=== PATIENT | male | born 1965 | race Caucasian/White ===

== ENCOUNTER 2023-06-22 13:51 | Outpatient (AMB) | payer BC, SELFPAY ==
--- NOTE | 2023-06-22 14:04 | MHC.OFFVIS ---
Intake Intake Visit Reasons: neck pain Mechanic Chief Required: No Assessment & Plan Assessment & Plan (1) Cervical myelopathy: Code(s): G95.9 - Disease of spinal cord, unspecified Plan Dear Dino, Thank you for referring MR Reed to our office today. 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 The pain could be quite severe at times, and he was experiencing episodes of weakness. He underwent some physical therapy and this would give him some mild temporary relief but otherwise the symptoms would come and go from time to time based on what he was doing. He tells me that the initial pain that he had is mostly gone but he is still getting significant discomfort in flare-ups from time to time that will last a few days and will make him basically bed-bound for few days. When he has he has flare-ups the arm will feel diffusely weak and numb. He is concerned because his MRI had signs of severe stenosis at C4-5. He was sent today to see us for an evaluation of the stenosis. He does not report any fine motor movement loss. No gait imbalance. He does take most days. PMH: He had a stroke last year which apparently the workup for that did not reveal any significant issue with his heart or his carotid arteries but he has been maintained on a baby aspirin ever since. His initial symptom was aphasia and that resolved. He has high cholesterol but other than that he is healthy. Social hx: He does smoke 3/4 of a pack a day Medications: Baby aspirin, rosuvastatin, Tylenol Allergies: None Physical exam: Strength is grossly normal in the upper extremities, normal gait, he is diffusely hyperreflexic with clonus in his left ankle. Negative Kori sign. Imaging review: Cervical MRI done at [facility] shows evidence of disc degeneration at multiple regions, but most significantly at C4-5 there is a large posterior disc bulge causing moderate to severe spinal cord compression. I do not see any overt cord signal change inside the spinal cord itself. Impression: 58-year-old gentleman presents for evaluation of intermittent left upper arm pain with diffuse arm weakness on and off since November of this year. When he does have a flare-up the pain can become so incapacitating he will basically be homebound her bedbound for a few days. It has been interrupting his sleep and his quality of life. On exam his strength is okay but he is demonstrating signs of hyperreflexia consistent with early myelopathy. I am going to speak with Dr. Silva, but I think this gentleman would be a good candidate for anterior cervical diskectomy and fusion at C4-5. We discussed all pertinent risks and benefits as well as the recovery from surgery. The patient is interested in proceeding. I will call him back once the have a chance to speak with Dr. Silva. Thank you for allowing us to care for your patient. The total time spent with this visit with this patient was 45 minutes reviewing history, physical exam, cervical spine imaging review, and implementation of treatment plan or further diagnostic testing Momo Silva MD,PhD [facility] Coding Level of Care Code New Pt Level 4 (14047) Diagnoses Cervical myelopathy G95.9
== END 2023-06-22 15:35 | disposition home or self-care (01) ==
PROVIDERS: PCP Internal Medicine; Referring Provider Physician Assistant; Visit Provider Physician Assistant
DX: G95.9 Disease of spinal cord, unspecified (principal)
CPT/HCPCS: 99204

== ENCOUNTER → 2023-06-22 13:51 | Outpatient (BNVA) | payer BC, SELFPAY | PROVIDERS: PCP Internal Medicine; Visit Provider Physician Assistant ==

== ENCOUNTER 2023-07-10 15:07 | Outpatient (AMB) | payer BC, SELFPAY ==
--- NOTE | 2023-07-10 15:32 | HO.SPINEOV ---
Intake Intake Visit Reasons: discuss sx Intake Note: Mr. Reed is here to discuss surgical options. Health Assistant Required: No Assessment & Plan Assessment & Plan (1) Cervical myelopathy: Code(s): G95.9 - Disease of spinal cord, unspecified Plan Dear colleague, On 07/10/2023, I saw for a preoperative consult Sundeep Uriarte. He was previously evaluated by Momo Simon for cervical myelopathy with severe spinal cord compression at C4-C5. He states that he has intermittent flare-ups of pain radiating to his proximal part of his left arm and diffuse weakness. The patient had a left temporal stroke in April of 2022. Cardiology evaluation review no cause. He denies chest pain. Today's exam, shows hyperreflexia with the left side is higher than the right side and a left Babinski. I reviewed the MRI of the cervical spine in detail that shows severe spinal cord compression at C4-5 and a left C7 foraminal stenosis. Most likely all symptoms can be explained from the C4-5 region, including the flare ups with pain in his left upper arm. Therefore I proposed to do an anterior diskectomy fusion C4-C5 to decompress the spinal cord and exiting nerve root to address his cervical myelopathy and cervical radiculopathy. An additional posterior left C7 foraminotomy will be indicated if the flare ups of pain in his left arm do not respond to the C4-5 ACDF. I discussed the procedure and possible complications in detail with the patient and his . He is scheduled for 09/27/2023. We will obtain records from [facility] and [facility]ology. He needs to stop his aspirin 5 days prior to surgery. I spent 45 minutes in this consult for preparation, review of imaging and discussing plan of care. Thank you for the referral. Sumeet Silva MD, PhD Spine Fellowship Trained Neurosurgeon Director, [facility] [place] Coding Level of Care Code Est Pt Level 5 (39435) Diagnoses Cervical myelopathy G95.9
== END 2023-07-10 16:15 | disposition home or self-care (01) ==
PROVIDERS: PCP Internal Medicine; Visit Provider Neurological Surgery
DX: G95.9 Disease of spinal cord, unspecified (principal)
CPT/HCPCS: 99215

== ENCOUNTER → 2023-07-10 15:07 | Outpatient (BNVA) | payer BC, SELFPAY | PROVIDERS: PCP Internal Medicine; Visit Provider Neurological Surgery ==

== ENCOUNTER → 2023-09-13 12:51 | Outpatient (BNV) | payer BC, SELFPAY | PROVIDERS: PCP Internal Medicine; Visit Provider Internal Medicine Cardiovascular Disease | DX: R00.1 Bradycardia, unspecified (principal) | CPT/HCPCS: 93010 ==

== ENCOUNTER 2023-09-27 08:14 | Day surgery (SDC) | payer BC, SELFPAY ==
[2023-09-13 12:11] VITALS: BP 125/69; PULSE 65; RESP 18; O2SAT 96; BMI 26.0
--- NOTE | 2023-09-13 12:29 | HO.ANESPROP2 ---
Documented by User: Belle Oh NP 09/25/23 12:08 HPI - Anesthesia Eval Consult details Narrative: 58yo M for C4-5 Ant Cerv Discectomy w/ fusion, 09/27/23 No recent illness No CP/SOB with >4 mets CVA 2021. Resolved after antithrombics. salvage determiner aspirin and statin. Eval by cardiology at this time d/t eustachian valve - congenital and benign per cardiac office visit note. COPD/Smoker. No inhalers. GERD. Diet controlled Reports albuterol caused increase heart rate and SOB. ? side effect PMFSH Active Problems Active Problems: All Active Problems (Updated 09/13/23 @ 12:08 by Shayla Sanchez RN) Cervical myelopathy (Acute) Past Medical History Medical History Arthritis Habitual snoring Shoulder pain, right Elevated cholesterol Tobacco abuse Tubular adenoma GERD (gastroesophageal reflux disease) COPD (chronic obstructive pulmonary disease) CVA (cerebral vascular accident) Surgical History Surgical History (Updated 09/12/23 @ 10:12 by Shayla Sanchez RN) H/O colonoscopy Social History Social History Are you a primary home health care case manager to a significant other at home: No Do you presently have visiting nurse or other home services: No Patient Tobacco Use Status: Current everyday Tobacco user Tobacco use type: Cigarette Cigarettes Per Day: 10 Use of substances other than those prescribed or required for medical reasons: No Have you been hit, kicked, punched, or otherwise hurt by someone within the past year? If so, by whom?: No Advance Directives: No Advance Directives Information Provided: Yes Advance Directives on File: No Recently lost weight without trying: No Eating poorly because of decreased appetite: No Nutrition Risks: No Nutritional Risk Poor oral hygiene: Yes (partial dentures upper and lower) Meds Allergies Allergy/AdvReac Type Severity Reaction Status Date / Time albuterol [From ProAir HFA] Allergy Unknown Verified 09/27/23 08:55 amoxicillin Allergy Unknown Verified 09/27/23 08:55 Home Medications Medication Instructions Recorded Confirmed Last Taken Type aspirin 81 mg tablet,delayed 81 mg PO DAILY 09/12/23 09/12/23 09/20/23 History release diclofenac sodium 75 mg 75 mg PO BID PRN pain 09/12/23 09/12/23 Unknown History tablet,delayed release fluticasone propionate 50 2 spray intranasal DAILY 09/12/23 09/12/23 Unknown History mcg/actuation nasal spray,suspension multivitamin 1 tab PO DAILY 09/12/23 09/12/23 Unknown History rosuvastatin 10 mg tablet 10 mg PO BEDTIME 09/12/23 09/12/23 Unknown History Exam Height,Weight and Vital Signs: Height 5 ft 7 in Weight 75.296 kg Last Vital Signs Pulse 65 09/13/23 12:11 Resp 18 09/13/23 12:11 BP 125/69 09/13/23 12:11 Pulse Ox 96 09/13/23 12:11 O2 Del Method Room Air 09/13/23 12:11 Pertinent Lab Results Pertinent Lab Results: Lab Results 09/13/23 Range/Units 12:57 WBC 8.1 (4.8-10.8) X10*3/uL RBC 4.91 (4.60-5.80) X10*6/uL Hgb 15.1 (14.0-18.0) g/dl Hct 44.8 (42.0-52.0) % MCV 91.2 (80.0-98.0) fL MCH 30.8 (27.0-33.0) pg MCHC 33.7 (31.0-36.0) g/dl RDW 13.2 (11.0-16.0) % Plt Count 325 (160-400) X10*3/uL MPV 9.1 L (9.4-12.4) fL Absolute Nucleated RBC 0.000 (0.0-0.012) X10*3/uL Nucleated RBC % (auto) 0.0 (0.0-0.2) /100WBC Sodium 139 (135-145) mmol/L Potassium 4.9 (3.3-5.1) mmol/L Chloride 104 (96-108) mmol/L Carbon Dioxide 26 (22-29) mmol/L Anion Gap 14 (12-20) BUN 12 (9-16) mg/dL Creatinine 0.77 (0.5-1.4) mg/dL Estim Creat Clear Calc 96.5 Estimated GFR > 60 Random Glucose 84 (60-115) mg/dL Calcium 10.2 (8.4-10.2) mg/dL Narrative Narrative: EKG 09/2023 Vent. Rate : 057 BPM Atrial Rate : 057 BPM P-R Int : 208 ms QRS Dur : 104 ms QT Int : 402 ms P-R-T Axes : 064 053 051 degrees QTc Int : 391 ms Sinus bradycardia Otherwise normal ECG No previous ECGs available ECHO 2021 1. LV nml in size, wall thickness and systolic function. EF 55-65%. No RWMA. Nml diastolic function 2. LA nml in size 3. Agitated saline study was performed and was normal at rest and with Valsalva. No evidence of Right to Left shunting 4. RV is nml in size and function 5. Basal right atrium near the inter-atrial septum, there is a chamber/cyst like structure that measures [id number] that is anechoic and black Airway Mallampati Class: III TM Dist: >3cm Neck ROM: Limited Partial: Upper and Lower Loose/Missing/Broken Teeth: Yes (Front lower chipped) Heart: RRR Lungs: CTAB Assessment and Plan Assessment Anesthesia Assessment: Anesthesia Plan Discussed, Smoking Cess. Discussed and PAT Visit Documented by User: Robyn Feliz MD 09/27/23 10:12 [facility] Past Medical History Medical History Arthritis Habitual snoring Shoulder pain, right Elevated cholesterol Tobacco abuse Tubular adenoma GERD (gastroesophageal reflux disease) COPD (chronic obstructive pulmonary disease) CVA (cerebral vascular accident) Family History Family history of problems with anesthesia: No Surgical History Surgical History (Updated 09/12/23 @ 10:12 by Shayla Sanchez RN) H/O colonoscopy History of Problems with Anesthesia: No Social History Social History Are you a primary home health care case manager to a significant other at home: No Do you presently have visiting nurse or other home services: No Patient Tobacco Use Status: Current everyday Tobacco user Tobacco use type: Cigarette Cigarettes Per Day: 10 Use of substances other than those prescribed or required for medical reasons: No Have you been hit, kicked, punched, or otherwise hurt by someone within the past year? If so, by whom?: No Advance Directives: No Advance Directives Information Provided: Yes Advance Directives on File: No Recently lost weight without trying: No Eating poorly because of decreased appetite: No Nutrition Risks: No Nutritional Risk Poor oral hygiene: Yes (partial dentures upper and lower) Meds Allergies Allergy/AdvReac Type Severity Reaction Status Date / Time albuterol [From ProAir HFA] Allergy Unknown Verified 09/27/23 08:55 amoxicillin Allergy Unknown Verified 09/27/23 08:55 Home Medications Medication Instructions Recorded Confirmed Last Taken Type aspirin 81 mg tablet,delayed 81 mg PO DAILY 09/12/23 09/12/23 09/20/23 History release diclofenac sodium 75 mg 75 mg PO BID PRN pain 09/12/23 09/12/23 Unknown History tablet,delayed release fluticasone propionate 50 2 spray intranasal DAILY 09/12/23 09/12/23 Unknown History mcg/actuation nasal spray,suspension multivitamin 1 tab PO DAILY 09/12/23 09/12/23 Unknown History rosuvastatin 10 mg tablet 10 mg PO BEDTIME 09/12/23 09/12/23 Unknown History Assessment and Plan Assessment Anesthesia Assessment: Chart Reviewed Final Anesthetic Review Family History of Problems with Anesthesia: No History of Problems with Anesthesia: No NPO: Yes ASA Class: III Final Preanesthetic Review: No Changes in Pt Med Stat, Meds/Allgs Chart Reviewed, Consent Obtained/Reviewed and Anes Risks/Benef Reviewed Patient Risk: Intermediate Procedure Risk: Intermediate Anesthetic Plan Anesthetic Plan: GA Disposition: Standard PACU
[2023-09-13 14:49] LABS: Anion Gap 14 (12-20); Blood Urea Nitrogen 12 mg/dL (9-16); Calcium 10.2 mg/dL (8.4-10.2); Carbon Dioxide 26 mmol/L (22-29); Chloride 104 mmol/L (96-108); Creatinine Clr Calc Pharmacy 96.5; Estimated Glomerular Filt Rate > 60; Glucose Random 84 mg/dL (60-115); Potassium 4.9 mmol/L (3.3-5.1); Sodium 139 mmol/L (135-145)
[2023-09-27] VITALS (11 sets, daily range): BP systolic 122–158; BP diastolic 57–96; PULSE 58–77; RESP 11–21; TEMP 36.1–36.7; O2SAT 96–99; BMI 26.1
--- NOTE | ~2023-09-27 | FL_ITS ---
EXAMINATION: Intraoperative fluoroscopy CLINICAL INFORMATION: C4/5 anterior cervical discectomy with fusion COMPARISON: None. TECHNIQUE: Intraoperative fluoroscopy was provided for use by Dr. Silva. A total of 2 images were saved to PACS. A radiologist was not present during imaging. Today's dictation is only for administrative purposes to document intraoperative fluoroscopic usage. TOTAL FLUOROSCOPIC TIME: 0.0 minutes DAP: 0.13 Gy-cm FL/FL guidance in OR FINDINGS~\^^ Intraoperative fluoroscopy provided for use by Dr. Silva. Please see operative note for detailed findings.
--- NOTE | 2023-09-27 07:15 | MHC.SHP ---
Pre-Procedural Eval Section A Date of Service: 09/27/23 The patient is an INPATIENT: No Changes since office visit: No Cold of Flu in the past 2 weeks, No New Medical Problems, No Changes in Medication and No Patient answered all questions The History & Physical has been completed within 30 days and I have reviewed it.: No Section B Chief Complaint: Disease of spinal cord, unspecified Allergies: Allergies Allergy/AdvReac Type Severity Reaction Status Date / Time albuterol [From ProAir HFA] Allergy Unknown Verified 09/12/23 10:08 amoxicillin Allergy Unknown Verified 09/12/23 10:08 Review of Systems Sugical H&P ROS: Negative: Constitution, Cardiovascular, Respiratory, Neurological, Psychiatric, Hem-Onc, Allergic/Immunologic, Gastrointestinal, Genitourinary, Musculoskeletal, Integumentary, Endocrine and Eyes/Ears/Nose/Throat Exam Surgical H&P Exam: Not Evaluated: HEENT, Not Evaluated: Heart, Not Evaluated: Lungs, Not Evaluated: Extremities, Not Evaluated: Abdomen, Not Evaluated: Skin and Not Evaluated: Neurological Plan Diagnosis/Plan: Unchanged C4-5 anterior cervical diskectomy a nd fusion Time Spent With Patient Time: Total time managing care of this patient today __5__ minutes.
[2023-09-27] MEDS: Lactated Ringers 1,000 ML 100 ML IVCONT (09:01)
[2023-09-27] MEDS: Gabapentin 300 MG CAPSULE PO (10:21)
[2023-09-27] MEDS: vancomycin HCL 1,000 MG in 0.9 % Sodium Chloride 250 ML 270 MG IV (10:22)
[2023-09-27] MEDS: methocarbamoL 750 MG TABLET PO (10:22)
--- NOTE | 2023-09-27 10:37 | PC.NURSE ---
dr. lee had ordered preop respiratory treatment and then decision made not to give preop.
--- NOTE | 2023-09-27 11:59 | W.PM.OPN ---
Operative Note Operative Note Date of Service: 09/27/23 Narrative: Preoperative Diagnosis: Cervical myelopathy Procedure: C4-5 Anterior discectomy, arthrodesis and implantation cage ; C4-5 anterior instrumentation ; local autograft; microscope Informed Consent was obtained for this operation. I have explained the nature, purpose and benefits of the operation. I have discussed the risks and benefit of the operation including possible complications or adverse events with patient/family. Alternative(s) were discussed with the patient with their relative benefits and risks as well as the consequences of not accepting the operation were included in obtaining consent. Surgeon: NITZA SWIFT MD, PHD Procedure Assisted By: shania Oquendo Description of Procedure: This 58-year-old male suffering from symptoms of cervical myelopathy. MRI cervical spine shows multilevel degenerative changes a more importantly severe stenosis at C4-C5. He was offered a decompression of this level. The procedure complications were explained. The patient was consented. The patient was brought to the operating room and endotracheally intubated. The patient was put in supine position with slight extension of the neck. Prep and drape was done followed by timeout. A mid cervical incision was made followed by opening of the platysma. The prevertebral fascia was reached following the natural planes while the physician home based assistant provided manual retraction. The prevertebral fascia was opened to expose the disc space. A spinal needle was placed in the disk space to confirm the correct level with xray. The longus colli muscles were released bilaterally and a self retaining retractor was inserted. Two [place] pins were placed in the C4 and C5 vertebral bodies and distraction was give over the interspace. The discectomy was completed toward the posterior annulus of the disc. The microscope was brought in. The remainder of the discectomy was completed. The posterior ligament was opened and resected to expose the underlying dura. Osteophytes were resected from the body of C4 and C5 and saved for autograft. A curved curette could be easily passed under the body of C4 and C5, a sign of adequate decompression of the spinal cord. Bilateral foraminotomies were done. The endplates were prepared after which a 6 mm cage filled with autograft was inserted into the disc space. A separate attached plate was locked down with 2 x 14 mm screws as anterior instrumentation. Final x-rays in AP and lateral projection showed a satisfactory position of the implant. The physician home based assistant took over. The [place] pin was removed. Hemostasis was done. He closed the incision in 2 layers with a 3-0 Vicryl. Steri-Strips used to approximate incision. An OpSite with Tegaderm was used to cover the incision. All sponge and needle counts were correct. Patient was extubated and transported in stable is to recovery room. Anesthesia: General Estimated Blood Loss (ml): 10 mL Duration of Surgery: 60 minutes Postoperative Plan: Discharge home Complications: None
--- NOTE | 2023-09-27 12:05 | PM.DS ---
DS: Providers Provider Date of Service: 09/27/23 Date of discharge: 09/27/23 Primary care physician: Lilian Chavez MD Admitting clinician: Sumeet Silva DS: Diagnosis Discharge Diagnosis (1) Cervical myelopathy: Status: Acute DS: Summary Time Attestation Discharge coordination time: Less than 30 minutes Quality: Safe Use of Opioids Does Pt have an Active Cancer Diagnosis on the Problem List?: No Quality: Stroke Does the patient have a stroke diagnosis?: No Physical Exam Vital Signs: Vital Signs: Last Vital Signs Temp 98.0 F 09/27/23 08:56 Pulse 66 09/27/23 08:56 Resp 18 09/27/23 08:56 BP 122/57 L 09/27/23 08:56 Pulse Ox 97 09/27/23 08:56 O2 Del Method Room Air 09/27/23 08:56 BMI result Body Mass Index 26.1 Discharge Plan Discharge Patient Disposition: Home, Self-Care Referrals: Lilian Chavez MD [Primary Care Provider] - 1 Week Discharge Medications: New docusate sodium [Colace] 100 mg capsule 100 mg PO BID Qty: 20 0RF oxycodone 5 mg tablet 5 mg PO Q4H PRN (Reason: pain) Qty: 30 0RF Rx Instructions: Partial Fill upon patient request. Continued multivitamin Tablet 1 tab PO DAILY aspirin 81 mg tablet,delayed release (DR/EC) 81 mg PO DAILY diclofenac sodium 75 mg tablet,delayed release (DR/EC) 75 mg PO BID PRN (Reason: pain) fluticasone propionate 50 mcg/actuation spray,suspension 2 spray intranasal DAILY rosuvastatin 10 mg tablet 10 mg PO BEDTIME Discharge Orders: Discharge Order (Routine); Ordered 09/27/23 Ordered By: Momo Simon Diet: Advance to usual diet Activity on Discharge: As tolerated Activity Restrictions/Additional Instructions: After your spinal surgery we ask you to observe the following restrictions/guidelines: Activity: It is normal to feel some discomfort as you increase your activity, but that will improve with time. We ask you avoid heavy lifting or acitivities that cause pain. As a general rule, 8lbs is a safe limit for lifting right after surgery. Walk as much as you feel comfortable but not to exhaustion. You will feel extra tired the first few days after surgery. Stay well hydrated. It is OK to walk up and down stairs You may return to driving when you are off narcotics (such as vicodin, oxycodone, dilaudid, etc), and you are back to normal functional capacity. If you have any concerns please check with office before driving. Return to work is specific to each patient and each surgery, so please speak with your doctor/PA at first follow up. Please bring paperwork such as FMLA at that time if you need it filled out. Medications: For optimum pain control, it is best to start with a combination of 500 mg of Tylenol every 4 hours with 600 mg of Motrin every 8 hours, and use narcotics as needed in between for breakthrough pain. We will give you a short supply of narcotics after surgery (usually one weeks worth). If you need more please call the office but do not use more than prescribed. You will need to give our office 48 hours notice if you need narcotics refilled and we do not fill narcotics on weekends or evenings. If you are on a narcotic, it is a good idea to take a stool softener such as colace or senna to avoid constipation If you take blood thinner such as aspirin, Plavix, Coumadin, Effient, Eliquis etc for conditions such as Afib, DVT, Pulmonary embolus, coronary disease, stents etc please speak with your surgeon about specific details as to when you can resume these medications. You can resume NSAIDs on post op day 1 (eg: Motrin, Naproxen, etc). Follow up: Please call the office, , after surgery to arrange a 3 week follow up for wound check. Wound Care: You may remove your dressing on the first day after surgery. ?You may ?leave open to air. Please do not remove the steri strips underneath. they will fall off on their own in one week. IT IS NORMAL FOR THE WOUND TO OOZE OR BE BLOODY FOR A FEW DAYS AFTER SURGERY. ?IF THIS HAPPENS JUST PLACE NEW DRESSING OVER IT TO AVOID STAINING CLOTHES. You may shower on post op day # 1 We ask that you do not let the water soak the wound. If it does get wet, just towel dry lightly. Please do not scrub your incision or place any type of chemical/ointment on the wound. No tub baths, pools or jacuzzis for one month. If you have any leaking or redness from your wound, or fevers, please call office
[2023-09-27] MEDS: oxyCODONE HCl Immed Release 5 MG TABLET PO (12:24)
[2023-09-27] MEDS: fentaNYL citrate/PF 100 MCG/2 ML VIAL 25 MCG IVPUSH ×2 (12:24→12:29)
== END 2023-09-27 14:16 | disposition home or self-care (01) ==
PROVIDERS: Nurse Practitioner; PCP Internal Medicine; Visit Provider Neurological Surgery
PROC: (CPT 22551; principal; 2023-09-27 11:10)
DX: G95.9 Disease of spinal cord, unspecified (principal); M48.02 Spinal stenosis, cervical region
CPT/HCPCS: 22551; 22853; 20936; 22845; 36415; 80048; 85027; 93005; C1713; J0131; J1100; J2250; J2405; J2704; J3010; J3370

== ENCOUNTER → 2023-09-27 08:14 | Outpatient (BNV) | payer BC, SELFPAY | PROVIDERS: PCP Internal Medicine; Visit Provider Neurological Surgery | DX: M50.021 Cervical disc disorder at C4-C5 level with myelopathy (principal); G95.9 Disease of spinal cord, unspecified | CPT/HCPCS: 20936; 22551; 22845; 22853; 99499 ==

== ENCOUNTER 2023-10-19 10:16 | Outpatient (AMB) | payer BC, SELFPAY ==
--- NOTE | 2023-10-19 10:21 | A.OFFVIS_ITS ---
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: No Allergies albuterol [From ProAir HFA] Allergy (Verified 09/27/23 08:55) Unknown amoxicillin Allergy (Verified 09/27/23 08:55) Unknown [facility] Medical History Arthritis Habitual snoring Shoulder pain, right Elevated cholesterol Tobacco abuse Tubular adenoma GERD (gastroesophageal reflux disease) COPD (chronic obstructive pulmonary disease) CVA (cerebral vascular accident) Surgical History (Updated 10/19/23 @ 10:32 by DAVID Irving) H/O colonoscopy Social History Are you a primary chronic care nurse to a significant other at home: No Do you presently have visiting nurse or other home services: No Comment: medicated with oxycodone Patient Tobacco Use Status: Current everyday Tobacco user Tobacco use type: Cigarette Cigarettes Per Day: 10 Assessment & Plan Assessment & Plan (1) H/O cervical spine surgery: Code(s): Z98.890 - Other specified postprocedural states Plan Procedure: C4-5 ACDF Sundeep comes in today for his 1st postoperative visit. He reports that he has been doing well since his surgery, and had almost complete resolution of pain until last Sunday. He states that he was taking a shower and feels as though he tweaked his neck, which aggravated his left shoulder and created some very slight shooting type pain from his neck into his left deltoid. He states that this is very low-grade pain and is not very concerning for him at this time. He did inquire about returning to driving again, but states he does not have full range of motion of his neck without pain. He was informed that he has not going to be able to drive again until he feels he can fully range his neck. He still has difficulty with left-sided lateral rotation. 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 He will be discussing the possibility of returning on light duty with his boss. No new neurological deficits. Patient is able to ambulate well, rises from a seated position without difficulty. Incision sites are closed, well healing, with no signs of drainage. We will follow-up with the patient in 6 weeks for his 2nd postoperative visit. At that time we will get x-rays to review with the patient. 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 Cam Silva MD,PhD [facility] Orders: Orders XR cervical spine 4V Today Z98.890 - Other specified postprocedural states Coding Level of Care Code Global (66435) Diagnoses H/O cervical spine surgery Z98.890
== END 2023-10-19 10:38 | disposition home or self-care (01) ==
PROVIDERS: PCP Internal Medicine; Visit Provider Physician Assistant
DX: Z98.890 Other specified postprocedural states (principal)
CPT/HCPCS: 99024

== ENCOUNTER 2023-10-19 10:16 | Outpatient (REF) | payer BC, SELFPAY | END 2023-10-19 10:17 | disposition home or self-care (01) | LOC: HO.HOSX 10:16 | PROVIDERS: PCP Internal Medicine; Visit Provider Physician Assistant | DX: Z13.89 Encounter for screening for other disorder (principal) ==

== ENCOUNTER 2023-11-30 10:18 | Outpatient (AMB) | payer BC, SELFPAY ==
--- NOTE | 2023-11-30 10:34 | HO.SPINEOV ---
Intake Intake Visit Reasons: 2nd post op with xrays Intake Note: Mr. Reed is here today for 2nd post op. 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 He is s/p C4-5 ACDF. He reports that he continues to have some strain/stress in his neck with 45 degree lateral rotation to the left of the cervical spine. Other than that he is doing very well, and states that he would like to return back to work with little to no restrictions. We discussed returning to regular activity in a stepwise approach and being mindful of his recent surgery when attempting heavier activities. He understands and is agreeable to this. There is no need for regular routine follow-up with Sundeep at this time. I provided him with a letter for work. Cam Silva MD,PhD [facility] Coding Level of Care Code Global (43812) Diagnoses Cervical myelopathy G95.9
== END 2023-11-30 10:53 | disposition home or self-care (01) ==
PROVIDERS: PCP Internal Medicine; Visit Provider Physician Assistant
DX: G95.9 Disease of spinal cord, unspecified (principal)
CPT/HCPCS: 99024

== ENCOUNTER → 2023-11-30 10:18 | Outpatient (BNVA) | payer BC, SELFPAY | PROVIDERS: PCP Internal Medicine; Visit Provider Physician Assistant ==

== ENCOUNTER 2023-11-30 10:19 | Outpatient (REF) | payer BC, SELFPAY ==
--- NOTE | ~2023-11-30 | XR_ITS ---
EXAMINATION: XR CERVICAL SPINE CLINICAL INFORMATION: Postprocedural status. COMPARISON: None available. TECHNIQUE: AP, lateral neutral, flexion and extension views of the cervical spine. FINDINGS: Postsurgical changes with disc space hardware at C4-C5. Advanced degenerative changes with spondylosis and loss of disc space height at C5-C6 and C6-7. XR/XR cervical spine 4V IMPRESSION: 1. Postsurgical changes with disc space hardware at C4-C5. 2. Advanced degenerative changes with spondylosis and loss of disc space height at C5-C6 and C6-7.
== END 2023-11-30 10:20 | disposition home or self-care (01) ==
LOC: HO.HOSX 10:19
PROVIDERS: Visit Provider Physician Assistant
DX: G95.9 Disease of spinal cord, unspecified (principal); Z98.890 Other specified postprocedural states
CPT/HCPCS: 72050

== ENCOUNTER 2024-06-03 17:52 | Emergency (ER) | payer BC, SELFPAY ==
[2024-06-03 19:16] VITALS: BP 140/80; PULSE 69; RESP 18; TEMP 36.8; O2SAT 96; BMI 23.1
--- NOTE | 2024-06-03 19:20 | ED_ITS ---
HPI - Extremity Injury (Lower) General Chief Complaint: Extremity Injury, Lower Stated Complaint: LT lower leg swelling Time Seen by Provider: 06/03/24 19:19 Source: patient Limitations: no limitations History of Present Illness ED Provider: Bebe Kimball PA-C HPI Narrative: 58-year-old male presents with left nieves pain. Patient states he had done a great deal of walking yesterday, he also hit the anterior portion of his knee. Associated mild bruising and subtle swelling. Denies calf pain or swelling, prior DVT. Related Data Home Medications ?Medication ?Instructions ?Recorded ?Confirmed aspirin 81 mg tablet,delayed 81 mg PO DAILY 09/12/23 09/12/23 release diclofenac sodium 75 mg 75 mg PO BID PRN pain 09/12/23 09/12/23 tablet,delayed release fluticasone propionate 50 2 spray intranasal DAILY 09/12/23 09/12/23 mcg/actuation nasal spray,suspension multivitamin 1 tab PO DAILY 09/12/23 09/12/23 rosuvastatin 10 mg tablet 10 mg PO BEDTIME 09/12/23 09/12/23 Previous Rx's ?Medication ?Instructions ?Recorded docusate sodium 100 mg capsule 100 mg PO BID #20 caps 09/27/23 (Colace) oxycodone 5 mg tablet 5 mg PO Q4H PRN pain #30 tabs 09/27/23 Allergies Allergy/AdvReac Type Severity Reaction Status Date / Time albuterol [From ProAir HFA] Allergy Unknown Verified 06/03/24 19:18 amoxicillin Allergy Unknown Verified 06/03/24 19:18 Review of Systems Review of Systems: Yes all other systems are reviewed and are negative Constitutional: Constitutional: Denies fatigue and Denies fever(s) Cardiovascular: Cardiovascular: Denies chest pain and Denies dyspnea Respiratory: Respiratory: Denies dyspnea Musculoskeletal: Musculoskeletal: Denies arthralgias and Denies joint swelling Integumentary/Breasts: Skin/Breast: Denies rash Endocrine: Endocrine: Denies fatigue PMFSH Past Medical History Attestation statement: The following information was validated with the patient. Medical History Arthritis Habitual snoring Shoulder pain, right Elevated cholesterol Tobacco abuse Tubular adenoma GERD (gastroesophageal reflux disease) COPD (chronic obstructive pulmonary disease) CVA (cerebral vascular accident) Surgical History (Updated 10/19/23 @ 10:32 by DAVID Irving) H/O colonoscopy Social History Social History Are you a primary animal care technician to a significant other at home: No Do you presently have visiting nurse or other home services: No Comment: medicated with oxycodone Patient Tobacco Use Status: Current everyday Tobacco user Tobacco use type: Cigarette Cigarettes Per Day: 10 Advance Directives: No Advance Directives Information Provided: No Do you have a plan to hurt others: No Plan Physical Exam Vital Signs: Vital Signs: Last Vital Signs Temp 98.2 F 06/03/24 19:16 Pulse 69 06/03/24 19:16 Resp 18 06/03/24 19:16 BP 140/80 H 06/03/24 19:16 Pulse Ox 96 06/03/24 19:16 O2 Del Method Room Air 06/03/24 19:16 BMI result Body Mass Index 23.1 Const: General: healthy appearing Resp: Effort & Inspection: normal respiratory effort Cardio: Other: Normal peripheral perfusion, no edema Extrem: Other: Subtle swelling with overlying ecchymosis noted anterior nieves, again no swelling of the calf Psych: Other: Calm cooperative Medical Decision Making Medical Decision Making MDM Narrative: 58-year-old male presents with left nieves pain. Patient states he had done a great deal of walking yesterday, he also hit the anterior portion of his knee. Associated mild bruising and subtle swelling. Denies calf pain or swelling, prior DVT. No relevant chronic issues History: Per patient I have considered the following differential diagnoses: DVT, contusion, nieves splints, fracture, dislocation Plan: Patient has a contusion, he may have nieves splints as well given he did a great deal of walking yesterday. We will send with home care instructions. There was nothing about the patient's exam to suggest a DVT. He can follow up with his primary care as needed. Discharge Plan Discharge Clinical Impression: Contusion of left leg Patient Disposition: Home, Self-Care Instructions: Contusion in Adults (ED) Additional Instructions: You have a contusion of the nieves, this is a fancy word for bruise. See home care instructions. You can use grlm-gry-qysydcy ibuprofen 600 mg taken every 6 hours, alternated with the use of otvu-omi-yipatbj Tylenol 1000 mg taken every 8 hours. Follow up with your primary care as needed. Prescriptions: No Action multivitamin Tablet 1 tab PO DAILY aspirin 81 mg tablet,delayed release (DR/EC) 81 mg PO DAILY diclofenac sodium 75 mg tablet,delayed release (DR/EC) 75 mg PO BID PRN (Reason: pain) fluticasone propionate 50 mcg/actuation spray,suspension 2 spray intranasal DAILY rosuvastatin 10 mg tablet 10 mg PO BEDTIME docusate sodium [Colace] 100 mg capsule 100 mg PO BID Qty: 20 0RF oxycodone 5 mg tablet 5 mg PO Q4H PRN (Reason: pain) Qty: 30 0RF Rx Instructions: Partial Fill upon patient request. Print Language: Macedonian
--- OUTSIDE RECORDS SUMMARY | 2024-06-03 19:23 | XMS_ITS | Continuity of Care Document ---
Author Organization [facility] Address [address] [facility], [address] Floor, [address] [place] [id number]- Care Team Providers Care Melt Down Furnace Operator Name Role Phone Scott YOUNG, Lilian Reynolds Primary Care Physician Encounter [facility] Date(s): 05/19/22 - 06/18/22 [facility] [address], [address], [address] [place] [id number]- Attending Physician: Danielle Barney Admitting Physician: AdmDanielle perez Referring Physician: AdmtrDanielle Allergies, Adverse Reactions, Alerts Substance Reaction Severity Status albuterol Active Immunizations Given and Recorded Vaccine Date Status Refusal Reason SARS-CoV-2 (COVID-19) mRNA-1273 vaccine 01/27/22 R ecorded SARS-CoV-2 (COVID-19) mRNA-1273 vaccine 09/06/21 R ecorded SARS-CoV-2 (COVID-19) Ad26 vaccine 12/15/20 Record ed Medications aspirin 81 mg oral tablet, chewable 81 mg, 1, tablet, By Mouth, Daily, # 30 tablet, Refills 11, Tot. Refills 11, Maintenance, 05/19/22 14:00:00 EDT, Route to Pharmacy Electronically, [facility] #[id number], Partial fill upon patient request if the prescription is for a schedule II... Start Date: 05/19/22 Stop Date: 05/14/23 Status: Ordered Chantix Starter Pack 0.5 mg-1 mg oral tablet 1 tablet, By Mouth, 2 times a day, as directed on package labeling, # 53 tablet, 0 Refills, Maintenance, 05/25/22 15:20:00 EDT, Tablet, [facility] #[id number], Partial fill upon patient request if the prescription is for a schedule II opioid drug... Start Date: 05/25/22 Status: Ordered nicotine 21 mg/24 hr transdermal film, extended release 1 patch, Topically, Daily, for 30 days, # 30 patch, 6 Refills, Acute 12/21/22 15:21:00 EDT, 05/25/22 15:21:00 EDT, Patch, [facility] #[id number], Partial fill upon patient request if the prescription is for a schedule II opioid drug., 1 patch Top... Start Date: 05/25/22 Stop Date: 12/21/22 Status: Ordered rosuvastatin 10 mg oral tablet 1 tablet = 10 mg, By Mouth, Daily, stop and call MD rashida castillo ache or pain, # 30 tablet, 2 Refills, Maintenance, 05/22/22 11:07:00 EDT, Tablet, [facility] #[id number], stop all other statins, 170, cm, 04/27/22 10:57:00 EDT, Height, 74.5, kg, ... Start Date: 05/22/22 Stop Date: 08/20/22 Status: Ordered Patient Care team information Personnel Name: Lilian Chavez MD Address: Address: [address] [place] [id number]
--- OUTSIDE RECORDS SUMMARY | 2024-06-03 19:23 | XMS_ITS | Continuity of Care Document ---
Author Organization [facility] Address [address] [place] [address]- Care Team Providers Care Home Health Clinical Liaison Name Role Phone Lilian Chavez MD Primary Care Physician [place] [facility]/25/22 - 04/27/[address] [phone]- Encounter Diagnosis Weakness(Final) - 04/25/22 Tingling(Final) - 04/25/22 Middle cerebral artery stenosis(Final) - 04/25/22 Discharge Disposition: A-D/C Home Attending Physician: Clari Garcia MD Admitting Physician: Justice Wharton DO Referring Physician: Not on Staff, Referring MD Allergies, Adverse Reactions, Alerts Substance Reaction Severity Status albuterol Active Immunizations Given and Recorded Vaccine Date Status Refusal Reason SARS-CoV-2 (COVID-19) mRNA-1273 vaccine 01/27/22 R ecorded SARS-CoV-2 (COVID-19) mRNA-1273 vaccine 09/06/21 R ecorded SARS-CoV-2 (COVID-19) Ad26 vaccine 12/15/20 Record ed Medications aspirin 81 mg oral tablet, chewable 81 mg, 1, tablet, By Mouth, Daily, # 30 tablet, Refills 0, Tot. Refills 0, Maintenance, 04/24/22 12:41:00 EDT, Route to Pharmacy Electronically, [facility], Partial fill upon patient request if the prescription is for a schedule II opioi... Start Date: 04/24/22 Status: Ordered atorvastatin 40 mg oral tablet 1 tablet = 40 mg, By Mouth, Daily, # 30 tablet, 0 Refills, Maintenance, 04/24/22 12:41:00 EDT, Tablet, [facility], Partial fill upon patient request if the prescription is for a schedule II opioid drug., 173, cm, 04/24/22 11:19:00 EDT, H... Start Date: 04/24/22 Status: Ordered nicotine 2 mg oral transmucosal gum 1 each = 2 mg, Chew, Every 2 hours, PRN as needed for smoking cessation, not to exceed 20 per day, # 160 each, 0 Refills, Acute 05/26/22 12:42:00 EDT, 04/24/22 12:42:00 EDT, Gum, [facility], Partial fill upon patient request if the presc... Start Date: 04/24/22 Stop Date: 05/26/22 Status: Ordered Plavix 75 mg oral tablet 75 mg, 1, tablet, By Mouth, Daily, # 90 tablet, Refills 0, Tot. Refills 0, Maintenance, 04/24/22 12:41:00 EDT, Route to Pharmacy Electronically, [facility], Partial fill upon patient request if the prescription is for a schedule II opioi... Start Date: 04/24/22 Stop Date: 07/23/22 Status: Ordered Vital Signs Most recent to oldest [Reference Range]: 1 2 3 Height 170 cm (04/27/22 10:57 AM) 170 cm (04/27/22 7:46 AM) 170 cm (04/27/22 3:41 AM) Weight 74.5 kg (04/26/22 5:45 PM) Oxygen Saturation [94-100 %] 99 % (04/27/22 10:57 AM) 100 % (04/27/22 7:46 AM) 96 % (04/27/22 3:41 AM) Pulse Rate [55-90 bpm] 54 bpm *L* (04/27/22 10:57 AM) 50 bpm *L* (04/27/22 7:46 AM) 58 bpm (04/27/22 3:41 AM) Body Mass Index [18.5-24.99] 25.78 *H* (04/26/22 5:45 PM) Blood Pressure [90-138/55-84 mm Hg] 126/63mm Hg (04/27/22 10:57 AM) 113/54mm Hg (04/27/22 7:46 AM) 111/65mm Hg (04/27/22 3:41 AM) Respiratory Rate [16-30 br/min] 16 br/min (04/27/22 10:57 AM) 18 br/min (04/27/22 7:46 AM) 18 br/min (04/27/22 3:41 AM) Temperature [96.8-100.4 DegF] 97.7 DegF (04/27/22 10:57 AM) 97.7 DegF (04/27/22 7:46 AM) 98.2 DegF (04/27/22 3:41 AM) Mode of Delivery (Oxygen) Room air (04/27/22 10:57 AM) Room air (04/27/22 7:46 AM) Room air (04/27/22 3:41 AM) Blood pressure sites Arm, left (04/27/22 10:57 AM) Arm, left (04/27/22 7:46 AM) Arm, left (04/27/22 3:41 AM) Temperature Route Oral (04/27/22 10:57 AM) Oral (04/27/22 7:46 AM) Temporal (04/27/22 3:41 AM) Dry Weight 74.5 kg (04/26/22 5:45 PM)
--- OUTSIDE RECORDS SUMMARY | 2024-06-03 19:23 | XMS_ITS | Continuity of Care Document ---
Author Organization [facility] Address [address] [place] [address]- Care Team Providers Care Hspt Tutor Name Role Phone Lilian Chavez MD Primary Care Physician Encounter [facility] Date(s): 05/25/22 - 06/24/22 [facility] [address] [place], [place] [address] Attending Physician: Admtr, Danielle Admitting Physician: [id number] Referring Physician: Admtr, Ar8 Allergies, Adverse Reactions, Alerts Substance Reaction Severity [...] 05/19/22 14:00:00 EDT, Route to Pharmacy Electronically, [facility] #[id number], Partial fill upon patient request if the prescription is for a schedule II... Start Date: 05/19/22 Stop Date: 05/14/23 Status: Ordered Chantix Starter Pack 0.5 mg-1 mg oral tablet 1 tablet, By Mouth, 2 times a day, as directed on package labeling, # 53 tablet, 0 Refills, Maintenance, 05/25/22 15:20:00 EDT, Tablet, [facility] #[id number], Partial fill upon patient request if the prescription is for a schedule II opioid drug... Start Date: 05/25/22 Status: Ordered nicotine 21 mg/24 hr transdermal film, extended release 1 patch, Topically, Daily, for 30 days, # 30 patch, 6 Refills, Acute 12/21/22 15:21:00 EDT, 05/25/22 15:21:00 EDT, Patch, [facility] #[id number], Partial fill upon patient request if the prescription is for a schedule II opioid drug., 1 patch Top... Start Date: 05/25/22 Stop Date: 12/21/22 Status: Ordered rosuvastatin 10 mg oral tablet 1 tablet = 10 mg, By Mouth, Daily, stop and call MD field msucle ache or pain, # 30 tablet, 2 Refills, Maintenance, 05/22/22 11:07:00 EDT, Tablet, [facility] #[id number], stop all other statins, 170, cm, 04/27/22 10:57:00 EDT, Height, 74.5, kg, ... Start Date: 05/22/22 Stop Date: 08/20/22 Status: Ordered Patient Care team information Personnel Name: Lilian Chavez MD Address: Address: [address] [place] [id number]
--- OUTSIDE RECORDS SUMMARY | 2024-06-03 19:23 | XMS_ITS | Continuity of Care Document ---
Author Organization [facility] Address [address] [facility], [address] d Floor, [address] [place] [id number]- Care Team Providers Care Data Software Engineer Name Role Phone Scott YOUNG, Lilian Reynolds Primary Care Physician Encounter [facility] Date(s): 07/20/22 - 08/19/22 [facility] [address], [address], [address] [place] [id number]- Allergies, Adverse Reactions, Alerts Substance Reaction Severity [...] 05/19/22 14:00:00 EDT, Route to Pharmacy Electronically, [facility] #[id number], Partial fill upon patient request if the prescription is for a schedule II... Start Date: 05/19/22 Stop Date: 05/14/23 Status: Ordered chantix 1mg tablet 1 tablet = 1 mg, By Mouth, 2 times a day, # 56 tablet, 3 Refills, Acute 09/27/22 21:00:00 EST, 06/27/22 15:49:00 EDT, Tablet, [facility] #[id number], Partial fill upon patient request if the prescription is for a schedule II opioid drug., 170, cm... Start Date: 06/27/22 Stop Date: 09/27/22 Status: Ordered nicotine 21 mg/24 hr transdermal film, extended release 1 patch, Topically, Daily, for 30 days, # 30 patch, 6 Refills, Acute 12/21/22 15:21:00 EDT, 05/25/22 15:21:00 EDT, Patch, [facility] #[id number], Partial fill upon patient request if the prescription is for a schedule II opioid drug., 1 patch Top... Start Date: 05/25/22 Stop Date: 12/21/22 Status: Ordered rosuvastatin 10 mg oral tablet 1 tablet = 10 mg, By Mouth, Daily, # 90 tablet, 1 Refills, Maintenance, 07/20/22 15:31:00 EST, Tablet, [facility] #[id number], Partial fill upon patient request if the prescription is for a schedule II opioid drug., 170, cm, 05/25/22 15:44:00 EDT... Start Date: 07/20/22 Stop Date: 01/16/23 Status: Ordered rosuvastatin 10 mg oral tablet 1 tablet = 10 mg, By Mouth, Daily, stop and call MD field msradhames ache or pain, # 30 tablet, 2 Refills, Maintenance, 05/22/22 11:07:00 EDT, Tablet, [facility] #[id number], stop all other statins, 170, cm, 04/27/22 10:57:00 EDT, Height, 74.5, kg, 08... Start Date: 05/22/22 Stop Date: 08/20/22 Status: Ordered Patient Care team information Care Team Personnel Name: Lilian Chavez MD Position: [facility] Physician (General Medicine) Member Role: PCP Address: Address: [address] [place] [id number]- Name: Angelia Blevins RN Position: [facility] RN Member Role: Primary Care Nurse Care Team Related Persons Name: JONNATHAN FLANAGAN Address: [address] [address]
--- OUTSIDE RECORDS SUMMARY | 2024-06-03 19:23 | XMS_ITS | Continuity of Care Document ---
Author Organization [facility] ter Address [address] [place] [id number]- Care Team Providers Care Hydraulic Tester Name Role Phone Lilian Chavez MD Primary Care Physician Encounter [facility] Date(s): 03/21/23 - 03/21/[address] [address]- Encounter Diagnosis Headache(Final) - 03/21/23 Discharge Disposition: A-D/C Home Attending Physician: Elian Lantigua MD Admitting Physician: Elian Lantigua MD Referring Physician: Not on Staff, Referring MD [...] 05/19/22 14:00:00 EDT, Route to Pharmacy Electronically, [facility] #[id number], Partial fill upon patient request if the prescription is for a schedule II... Start Date: 05/19/22 Stop Date: 05/14/23 Status: Ordered rosuvastatin 10 mg oral tablet 1 tablet = 10 mg, By Mouth, Daily, # 90 tablet, 0 Refills, Maintenance, 02/13/23 9:06:00 EDT, Tablet, [facility] #[id number], future reefills with PCP Dr Lilian Chavez, 170, cm, 05/25/22 15:44:00 EDT, Height, 74.5, kg, 04/26/22 17:54:00 EDT, Dry Weight Start Date: 02/13/23 Stop Date: 05/14/23 Status: Ordered rosuvastatin 10 mg oral tablet 1 tablet = 10 mg, By Mouth, Daily, stop and call MD rashida castillo ache or pain. Further refills from PCP. Thank you., # 30 tablet, 0 Refills, Maintenance, 01/11/23 15:01:00 EDT, Tablet, [facility] #[id number], stop all other statins, 170, cm, 05/11... Start Date: 01/11/23 Stop Date: 02/10/23 Status: Ordered Results Radiology Reports * Exam Date Time Procedure Performing Provider Status 03/21/23 10:[address] Head/Brain W/O Contrast Colon , Ta krista; Auth (Verified) Notes: (CT Head/Brain W/O Contrast) Reason For Exam: Headache(s) RESULT: CT Head/Brain W/O Contrast CT Head/Brain W/O Contrast INDICATION: Hx of Present Illness: Intermittent L sided temporal headache x 5 days. 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 Only takes baby asa daily.; Reason: Headache(s); Clinical Question(s): Hematoma; Order Comment: TECHNIQUE: Noncontrast head CT using axial technique and reconstructed in axial and coronal planes.Iterative reconstruction techniques are used to optimize dose and image quality. CTDIvol Head: 45.10 mGy, DLP Head: 773 mGy*cm. COMPARISON: 04/25/2022 FINDINGS: Lottery Manager view findings, lines and tubes: None. BRAIN AND EXTRA-AXIAL SPACES: No parenchymal hemorrhage, midline shift, or mass effect. [place]-white matter differentiation is wellpreserved. No acute infarct. Ventricles, sulci, and basilar cisterns are normal. No white matter lesions. No subarachnoid hemorrhage. No subdural or epidural collection. CALVARIUM, SKULL BASE, AND SOFT TISSUES: No fractures or suspicious bony lesions. Air-fluid level within left maxillary sinus with aerosolized secretions. Mild mucoperiosteal thickening within the ethmoid air cells. Visualized orbits and globes are intact. The extracranial soft tissues are unremarkable. IMPRESSION: No acute intracranial pathology. Left sphenoid sinusitis. WSN: [id number] Ordering Physician: Elian Lantigua Dictated By: Rosalina Garcia MD Dictated Date/Time: 03/21/23 10:55 p Reviewed By: Rosalina Garcia MD Signed By: Rosalina Garcia MD Signed Date/Time: 03/21/23 10:55 pm Transcribed By: RAMÓN Transcribed Date/Time: 03/21/23 10:53 pm Vital Signs Most recent to oldest [Reference Range]: 1 2 3 Height 170 cm (03/21/23 11:41 PM) 170 cm (03/21/23 7:57 PM) 170 cm (03/21/23 7:21 PM) Weight 75 kg (03/21/23 11:41 PM) 75 kg (03/21/23 7:57 PM) 75 kg (03/21/23 7:21 PM) Oxygen Saturation [94-100 %] 97 % (03/21/23 11:41 PM) 99 % (03/21/23 10:33 PM) 99 % (03/21/23 7:57 PM) Pulse Rate [55-90 bpm] 59 bpm (03/21/23 11:41 PM) 87 bpm (03/21/23 10:33 PM) 79 bpm (03/21/23 7:57 PM) Body Mass Index [18.5-24.99 kg/m2] 25.95 kg/m2 *H* (03/21/23 7:57 PM) Blood Pressure [90-138/55-84 mm Hg] 110/59mm Hg (03/21/23 11:41 PM) 129/81mm Hg (03/21/23 10:33 PM) 122/66mm Hg (03/21/23 7:57 PM) Respiratory Rate [16-30 br/min] 18 br/min (03/21/23 11:41 PM) 18 br/min (03/21/23 10:33 PM) 19 br/min (03/21/23 7:57 PM) Temperature [96.8-100.4 DegF] 97.6 DegF (03/21/23 11:41 PM) 98.1 DegF (03/21/23 10:33 PM) 98.2 DegF (03/21/23 7:57 PM) Mode of Delivery (Oxygen) Room air (03/21/23 11:41 PM) Room air (03/21/23 10:33 PM) Room air (03/21/23 7:57 PM) Blood pressure sites Arm, right (03/21/23 11:41 PM) Arm, left (03/21/23 10:33 PM) Arm, left (03/21/23 7:57 PM) Temperature Route Oral (03/21/23 11:41 PM) Oral (03/21/23 10:33 PM) Oral (03/21/23 7:57 PM) Dry Weight 75 kg (03/21/23 11:41 PM) 75 kg (03/21/23 7:57 PM) 75 kg (03/21/23 7:21 PM) Social History Social History Type Response Smoking Status 5-9 cigarettes (betw een 1/4 to 1/2 pack)/day in last 30 days entered on: 03/21/23 Sex Note * Elian Lantigua MD: PERFORM Event Display: Patient Education Leaflets Authored Date: [id number] Tension Headache ?? [id number] Tension Headache A muscle tension headache is a very common cause of head pain. It???s also called a stress headache. When some people are under stress, they tense the muscles of their shoulder, neck, and scalp without knowing it. If this tension lasts long enough, a headache can occur. A tension headache can be quite painful. It can last for hours or even days. Home care Follow these tips when caring for yourself at home: ??? Don???t drive yourself home if you were given pain medicine for your headache. Instead have someone else drive you home. Try to sleep when you get home. You should feel much better when you wake up. ??? Put heat on the back of your neck to help ease neck spasm. ?? How to prevent tension-type headaches ??? Figure out what is causing stress in your life. Learn newways to handle your stress. Ideas include regular exercise, biofeedback, self-hypnosis, yoga, and meditation. Talk with your healthcare provider to find out more information about managing stress. Many books and digital media are also available on this subject. ??? Take time out at the first sign of a tension headache, if possible. Take yourself out of the stressful situation. Find a quiet, comfortable place to sit or lie down and let yourself relax. Heat and deep massage of the tight areas in the neck and shoulders may help ease muscle spasm. You may also get relief from a medicine such as ac etaminophen, ibuprofen, naproxen, or a prescribed muscle relaxant. But using these medicines too often may make headaches worse. ?? Follow-up care Follow up with your healthcare provider, or as advised. Talk with your provider if you have frequent headaches. They can figure out a treatment plan. Ask if you can have medicine to take at home the next time you get a bad headache. This may keep you from having to visit the emergency department inthe future. You may need to see a headache specialist (neurologist) if you continue to have headache s. ?? When to get medical advice Call your healthcare provider right away??if any of these occur: ??? Your head pain gets worse during sexual intercourse or strenuous activity ??? Your head pain doesn???t get better in 24 hours ??? You aren???t able to keep liquids down (repeated vomiting) ??? Fever of 100.4??F (38??C) or higher, or as advised by your provider ??? Stiff neck ??? Extreme drowsiness, confusion, or fainting ??? Dizziness or dizziness with spinning feeling (vertigo) ??? Weakness in an arm or leg or 1 side of your face ??? You have trouble speaking ??? Your vision changes ?? Last Reviewed Date: 2022 ?? [id number] [employer]. All rights reserved. This information is not intended as a substitute for professional medical care. Always follow your healthcare professional's instructions. ?? Patient Care team information Care Team Personnel Name: Lilian Chavez MD Position: [facility] Physician - Primary Care Member Role: PCP Address: Address: [address] [place] [id number] Name: Agustina Heredia RN Position: [facility] ED RN W/OE and Tasks Member Role: Patient Care Provider Name: Ryanne Oquendo RN Position: [facility] ED RN W/OE and Tasks Member Role: Patient Care Provider Name: Elian Lantigua MD Position: [facility] Resident Member Role: Admitting Physician Address: Address: [address] [place] [address] [place] [address]- Care Team Related Persons Name: JONNATHAN FLANAGAN Address: home [address] [place] [id number]
--- OUTSIDE RECORDS SUMMARY | 2024-06-03 19:23 | XMS_ITS | Continuity of Care Document ---
Author Organization [facility] Address [address] [place] [id number]- Care Team Providers Care Community Relations Manager Name Role Phone Not on Staff, PCP Primary Care Physician Unavail able Encounter [facility] Date(s): 12/19/23 - 12/26/[address] [address]- Encounter Diagnosis Fall(Final) - 12/22/23 Trauma(Final) - 12/19/23 Discharge Disposition: Transferred to short-term general hospit Attending Physician: Ahsan Anderson MD Admitting Physician: Ahsan Anderson MD Referring Physician: Not on Staff, Referring MD Allergies, Adverse Reactions, Alerts Substance Reaction Severity Status albuterol Active penicillins Active Immunizations Given and Recorded Vaccine Date Status Refusal Reason SARS-CoV-2 (COVID-19) mRNA-1273 vaccine 01/27/22 R ecorded SARS-CoV-2 (COVID-19) mRNA-1273 vaccine 09/06/21 R ecorded SARS-CoV-2 (COVID-19) Ad26 vaccine 12/15/20 Record ed Medications acetaminophen 325 mg oral tablet 650 mg, By Mouth, Every 8 hours, Refills 0, Maintenance, 12/26/23 13:09:00 EDT, Partial fill upon patient request if the prescription is for a schedule II opioid drug. Start Date: 12/26/23 Status: Ordered bisacodyl 10 mg rectal suppository 1 supp = 10 mg, Rectally, Daily, PRN Constipation, 0 Refills, Maintenance, 12/26/23 13:11:00 EDT, Suppository, Partial fill upon patient request if the prescription is for a schedule II opioid drug. Start Date: 12/26/23 Status: Ordered Colace sodium 100 mg oral capsule 100 mg, 1, capsule, By Mouth, 2 times a day, Refills 0, Maintenance, 12/26/23 13:09:00 EDT, Partialfill upon patient request if the prescription is for a schedule II opioid drug. Start Date: 12/26/23 Status: Ordered Fioricet Tablet 1 tablet, By Mouth, Every 8 hours, PRN Headache, 0 Refills, Maintenance, 12/26/23 13:10:00 EDT, Tablet, Partial fill upon patient request if the prescription is for a schedule II opioid drug. Start Date: 12/26/23 Status: Ordered folic acid 1 mg oral tablet 1 mg, By Mouth, Daily, Refills 0, Maintenance, 12/26/23 13:09:00 EDT, Partial fill upon patient request if the prescription is for a schedule II opioid drug. Start Date: 12/26/23 Status: Ordered gabapentin 300 mg oral capsule 300 mg, Capsule, By Mouth, 12/26/23 9:00:00 EDT Start Date: 12/26/23 Stop Date: 12/26/23 Status: Completed gabapentin 300 mg oral capsule 300 mg, By Mouth, 3 times a day, Refills 0, Maintenance, 12/26/23 13:09:00 EDT, Partial fill upon patient request if the prescription is for a schedule II opioid drug. Start Date: 12/26/23 Status: Ordered Keppra 500 mg oral tablet = 500 mg, By Mouth, Every 12 hours, end 12/25 PM, # 1 tablet, 0 Refills, Maintenance, 12/26/23 13:10:00 EDT, Tablet, Partial fill upon patient request if the prescription is for a schedule II opioid drug. Start Date: 12/26/23 Stop Date: 12/27/23 Status: Ordered lidocaine 5% topical film Topically, Daily, 0 Refills, Maintenance, 12/26/23 13:10:00 EDT, Patch, Partial fill upon patient request if the prescription is for a schedule II opioid drug. Start Date: 12/26/23 Status: Ordered Milk of Magnesia Liquid 25 mL, By Mouth, 2 times a day, 0 Refills, Maintenance, 12/26/23 13:10:00 EDT, Suspension, Partial fill upon patient request if the prescription is for a schedule II opioid drug. Start Date: 12/26/23 Status: Ordered MiraLax Powder 1 pack/packet = 17 Gm, By Mouth, Daily, 0 Refills, Maintenance, 12/26/23 13:10:00 EDT, Powder, Partial fill upon patient request if the prescription is for a schedule II opioid drug. Start Date: 12/26/23 Status: Ordered Multivit Therapeutic/Minerals Tablet 1 tablet, By Mouth, Daily, 0 Refills, Maintenance, 12/26/23 13:10:00 EDT, Tablet, Partial fill uponpatient request if the prescription is for a schedule II opioid drug. Start Date: 12/26/23 Status: Ordered Nicotine = 7 mg, Topically, Daily, 0 Refills, Maintenance, 12/26/23 13:10:00 EDT, Patch, Partial fill upon patient request if the prescription is for a schedule II opioid drug. Start Date: 12/26/23 Status: Ordered oxyCODONE 5 mg oral tablet 5 mg, Tablet, By Mouth, Every 4 hours, PRN for Pain , Moderate, Routine, 12/19/23 23:45:00 EDT Start Date: 12/19/23 Stop Date: 12/27/23 Status: Discontinued oxyCODONE 5 mg oral tablet 5 mg, By Mouth, Every 4 hours, PRN, for 3 days, # 5 tablet, Refills 0, Tot. Refills 0, Acute 12/29/23 13:12:00 EDT, Pain , Moderate, 12/26/23 13:12:00 EDT, Print Requisition, Partial fill upon patient request if the prescription is for a schedule II o... Start Date: 12/26/23 Stop Date: 12/29/23 Status: Ordered rosuvastatin 10 mg oral tablet 1 tablet = 10 mg, By Mouth, Daily, # 90 tablet, 0 Refills, Maintenance, 02/13/23 9:06:00 EDT, Tablet, [id number], future reefills with PCP Dr Lilian Chavez, [...] 0 Refills, Maintenance, 01/11/23 15:01:00 EDT, Tablet, [facility] #[id number], stop all other statins, 170, cm, 05/11... Start Date: 01/11/23 Stop Date: 02/10/23 Status: Ordered Senna 8.6 mg oral tablet 8.6 mg, 1, tablet, By Mouth, Daily, Refills 0, Maintenance, 12/26/23 13:10:00 EDT, Tablet, Partial fill upon patient request if the prescription is for a schedule II opioid drug. Start Date: 12/26/23 Status: Ordered Results Radiology Reports (Most Recent Ten) * Exam Date Time Procedure Performing Provider Status 12/20/23 8:07 AM Shoulder Min 2 Views Left Vinicius Robles; Auth (Verified) Notes: (Shoulder Min 2 Views Left) Reason For Exam: Trauma RESULT: Shoulder Min 2 Views Left Shoulder Min 2 Views Left, 2 views REASON: Trauma; Clinical Question(s): Fracture COMPARISON: None. FINDINGS: No fracture or dislocation. No arthritic change of the glenohumeral joint. Mild degenerative changes of the AC joint. The portion of the clavicle included on the exam is normal. No calcification of the rotator cuff. Partially visualized ACDF hardware. IMPRESSION: Acromioclavicular degenerative change. No evidence of acute osseous abnormality. WSN: [id number] Ordering Physician: Fern Gamboa Dictated By: Matt Chacon MD Dictated Date/Time: 12/20/23 8:47 am Reviewed By: Matt Chacon MD Signed By: Matt Chacon MD Signed Date/Time: 12/20/23 8:47 am Transcribed By: RAMÓN Transcribed Date/Time: 12/20/23 8:46 am * Exam Date Time Procedure Performing Provider Status 12/20/23 8:07 AM Chest 2 Views Frontal and Lat Vinicius Giraldo; Auth (Verified) Notes: (Chest 2 Views Frontal and Lat) Reason For Exam: rib fx;Other: RESULT: Chest 2 Views Frontal and Lat Chest 2 Views Frontal and Lat INDICATION: rib fx; Clinical Question(s): Pneumothorax / Pneumothorax COMPARISON: CT chest 12/19/2023 FINDINGS: LINES AND TUBES: None. LUNGS AND PLEURA: Low lung volumes with mild basilar atelectasis. Lungs are otherwise clear with no definite consolidation. No pleural effusion. No pneumothorax. HEART, MEDIASTINUM AND VINCENZO: Heart is normal in size. Normal mediastinal and hilar contour. BONES AND SOFT TISSUES: Rib fractures better seen on CT. Prior ACDF. IMPRESSION: No pneumothorax or hemothorax. WSN: [id number] Ordering Physician: Arelis Noonan Dictated By: Matt Chacon MD Dictated Date/Time: 12/20/23 8:40 am Reviewed By: Matt Chacon MD Signed By: Matt Chacon MD Signed Date/Time: 12/20/23 8:40 am Transcribed By: RAMÓN Transcribed Date/Time: 12/20/23 8:39 am * Exam Date Time Procedure Performing Provider Status 12/20/23 8:07 AM Shoulder Min 2 Views Right Vinicius Robles; Auth (Verified) Notes: (Shoulder Min 2 Views Right) Reason For Exam: Trauma RESULT: Shoulder Min 2 Views Right Shoulder Min 2 Views Right, 2 views REASON: Trauma; Clinical Question(s): Fracture COMPARISON: None. FINDINGS: No fracture or dislocation. No arthritic change of the glenohumeral joint. Moderate degenerative changes of the AC joint. The portion of the clavicle included on the exam is intact. No calcification of the rotator cuff. IMPRESSION: Acromioclavicular degenerative change. No evidence of acute osseous abnormality. WSN: [id number] Ordering Physician: Fern Gamboa Dictated By: Matt Chacon MD Dictated Date/Time: 12/20/23 8:37 am Reviewed By: Matt Chacon MD Signed By: Matt Chacon MD Signed Date/Time: 12/20/23 8:37 am Transcribed By: RAMÓN Transcribed Date/Time: 12/20/23 8:37 am * Exam Date Time Procedure Performing Provider Status 12/19/23 4:[address] Angio Neck Arelis Blanco; Auth (V erified) Notes: (CT Angio Neck) Reason For Exam: Trauma RESULT: CT Angio Neck CT Angio Head, CT Angio Neck Reason: Trauma; Clinical Question(s): Other: / Other: TECHNIQUE: CT angiogram of the head and neck was performed after bolus administration of intravenous contrast. 100 mL of Omnipaque 300 was administered intravenously. Coronal and sagittal MIP reformatted images were obtained. Additional 3-D images were created on a separate workstation under concurrent supervision by the attending radiologist. All stenoses are measured using NASCET criteria. Weight-based protocol using automatic tube modulation was used to optimize exposure parameters. RADIATION DOSE PARAMETERS: CTDIvol Body: 8.87 mGy, DLP Body: 473 mGy*cm. COMPARISON: Noncontrast CT head performed concurrently. FINDINGS: There is a 2 vessel arch. The supraaortic proximal great neck vessels appear normal in caliber and appearance. No hemodynamically significant stenosis. The right common carotid artery is normal in caliber. The right carotid bulb has mild mural calcifications without stenosis. The right proximal ICA shows 0% stenosis by NASCET criteria. The left common carotid artery is normal in caliber. The left carotid bulb is normal. The left proximal ICA shows 0% stenosis by NASCET criteria. Right vertebral artery: Patent without stenosis. Left vertebral artery: Patent without stenosis. Cervical spine: No acute pathology. Status post discectomy and fusion of C4-C5. Spondylosis at C5-C6 and C6-C7 levels. Soft tissues and lung apices: The visualized upper lungs show mild diffuse emphysematous changes. Small bullae within bilateral lung apices. There is mild dependent atelectasis. Trace right apical pneumothorax. Please correlate clinically. Bilateral thyroid lobes are normal. There is no definite abnormality throughout the soft tissue neck. [place]: Concurrent CT of head showed acute subarachnoid hemorrhages within the sulci of the left frontal lobe. There is also a small amount of acute subdural hemorrhages at the left frontoparietal temporal regions as well as along the anterior falx. A 3 mm left to right midline shift is noted. A moderate subcutaneous hematoma is seen in the right parieto-occipital scalp. Mild mucosal thickening is seen within the ethmoid sinuses. The right-sided sphenoid sinus contains a mucus retention cyst versus polyp. Bilateral internal carotid arteries at the skull base appear normal in calibers and appearance. No definite stenosis is seen. The left posterior communicating artery is visualized. An infundibulum isseen at origin of the left posterior communicating artery. Bilateral ACAs, MCAs and their branches are patent. No stenosis or vessel cut off is seen. No definite aneurysm is noted. Bilateral intracranial vertebral arteries show no definite stenosis. The vertebrobasilar junction is normal. The basilar artery is slightly tortuous. No stenosis or dissection is seen. There is no basilar tip aneurysm. Bilateral delivery consultant and their branches are patent. The superior sagittal sinuses, the straight sinus, bilateral transverse and sigmoid sinuses: Patentwithout dural sinus thrombosis. IMPRESSION: Concurrent CT of head showed acute subarachnoid hemorrhages within the sulci of the left frontal lobe. There is also a small amount of acute subdural hemorrhages at the left frontoparietal temporal regions as well as along the anterior falx. No cutoff or high-grade stenosis of the major branches of the intracranial arteries. No aneurysm, stenosis, or vascular malformations present. The right proximal internal carotid artery show no significant stenosis by NASCET criteria. The left proximal internal carotid artery show no significant stenosis by NASCET criteria. The right cervical vertebral artery shows no significant stenosis. The left cervical vertebral artery shows no significant stenosis. Trace right apical pneumothorax. Please correlate clinically. REFERENCE: NASCET Criteria: The degree of internal carotid stenosis is based on NASCET Criteria: Normal: No stenosis Mild: Less than 50% stenosis Moderate: 50-69% stenosis Severe: 70-99% stenosis Total occlusion: No detectable patent lumen. The preliminary reports were given by the [facility]. WSN: [id number] Ordering Physician: Delmis Garcias Dictated By: Yasir De La Cruz MD Dictated Date/Time: 12/20/23 8:30 am Reviewed By: Yasir De La Cruz MD Signed By: Yasir De La Cruz MD Signed Date/Time: 12/20/23 8:30 am Transcribed By: RAMÓN Transcribed Date/Time: 12/20/23 8:22 am * Exam Date Time Procedure Performing Provider Status 12/19/23 4:[address] Angio Head Arelis Blanco; Auth (V erified) Notes: (CT Angio Head) Reason For Exam: Trauma RESULT: CT Angio Head CT Angio Head, CT Angio Neck Reason: Trauma; Clinical Question(s): Other: / Other: TECHNIQUE: CT angiogram of the head and neck was performed after bolus administration of intravenous contrast. 100 mL of Omnipaque 300 was administered intravenously. Coronal and sagittal MIP reformatted images were obtained. Additional 3-D images were created on a separate workstation under concurrent supervision by the attending radiologist. All stenoses are measured using NASCET criteria. Weight-based protocol using automatic tube modulation was used to optimize exposure parameters. RADIATION DOSE PARAMETERS: CTDIvol Body: 8.87 mGy, DLP Body: 473 mGy*cm. COMPARISON: Noncontrast CT head performed concurrently. FINDINGS: There is a 2 vessel arch. The supraaortic proximal great neck vessels appear normal in caliber and appearance. No hemodynamically significant stenosis. The right common carotid artery is normal in caliber. The right carotid bulb has mild mural calcifications without stenosis. The right proximal ICA shows 0% stenosis by NASCET criteria. The left common carotid artery is normal in caliber. The left carotid bulb is normal. The left proximal ICA shows 0% stenosis by NASCET criteria. Right vertebral artery: Patent without stenosis. Left vertebral artery: Patent without stenosis. Cervical spine: No acute pathology. Status post discectomy and fusion of C4-C5. Spondylosis at C5-C6 and C6-C7 levels. Soft tissues and lung apices: The visualized upper lungs show mild diffuse emphysematous changes. Small bullae within bilateral lung apices. There is mild dependent atelectasis. Trace right apical pneumothorax. Please correlate clinically. Bilateral thyroid lobes are normal. There is no definite abnormality throughout the soft tissue neck. [place] of [place]: Concurrent CT of head showed acute subarachnoid hemorrhages within the sulci of the left frontal lobe. There is also a small amount of acute subdural hemorrhages at the left frontoparietal temporal regions as well as along the anterior falx. A 3 mm left to right midline shift is noted. A moderate subcutaneous hematoma is seen in the right parieto-occipital scalp. Mild mucosal thickening is seen within the ethmoid sinuses. The right-sided sphenoid sinus contains a mucus retention cyst versus polyp. Bilateral internal carotid arteries at the skull base appear normal in calibers and appearance. No definite stenosis is seen. The left posterior communicating artery is visualized. An infundibulum isseen at origin of the left posterior communicating artery. Bilateral ACAs, MCAs and their branches are patent. No stenosis or vessel cut off is seen. No definite aneurysm is noted. Bilateral intracranial vertebral arteries show no definite stenosis. The vertebrobasilar junction is normal. The basilar artery is slightly tortuous. No stenosis or dissection is seen. There is no basilar tip aneurysm. Bilateral delivery consultant and their branches are patent. The superior sagittal sinuses, the straight sinus, bilateral transverse and sigmoid sinuses: Patentwithout dural sinus thrombosis. IMPRESSION: Concurrent CT of head showed acute subarachnoid hemorrhages within the sulci of the left frontal lobe. There is also a small amount of acute subdural hemorrhages at the left frontoparietal temporal regions as well as along the anterior falx. No cutoff or high-grade stenosis of the major branches of the intracranial arteries. No aneurysm, stenosis, or vascular malformations present. The right proximal internal carotid artery show no significant stenosis by NASCET criteria. The left proximal internal carotid artery show no significant stenosis by NASCET criteria. The right cervical vertebral artery shows no significant stenosis. The left cervical vertebral artery shows no significant stenosis. Trace right apical pneumothorax. Please correlate clinically. REFERENCE: NASCET Criteria: The degree of internal carotid stenosis is based on NASCET Criteria: Normal: No stenosis Mild: Less than 50% stenosis Moderate: 50-69% stenosis Severe: 70-99% stenosis Total occlusion: No detectable patent lumen. The preliminary reports were given by the [facility]. WSN: [id number] Ordering Physician: Delmis Garcias Dictated By: Yasir De La Cruz MD Dictated Date/Time: 12/20/23 8:30 am Reviewed By: Yasir De La Cruz MD Signed By: Yasir De La Cruz MD Signed Date/Time: 12/20/23 8:30 am Transcribed By: RAMÓN Transcribed Date/Time: 12/20/23 8:22 am * Exam Date Time Procedure Performing Provider Status 12/19/23 7:[address] Head/Brain W/O Contrast Luh Luke; Auth (Verified) Notes: (CT Head/Brain W/O Contrast) Reason For Exam: Behavior Problem RESULT: CT Head/Brain W/O Contrast CT Head/Brain W/O Contrast INDICATION: Hx of Present Illness: I was on top of my truck and i fell through the top; Reason: Behavior Problem; Clinical Question(s): Hematoma; more sleepy, acute change with known bleed TECHNIQUE: Noncontrast head CT using axial technique and reconstructed in axial and coronal planes.Iterative reconstruction techniques are used to optimize dose and image quality. COMPARISON: None. FINDINGS: Wigs Salesperson view findings, lines and tubes: None. BRAIN AND EXTRA-AXIAL SPACES: No parenchymal hemorrhage, midline shift, or mass effect. [place]-white matter differentiation is wellpreserved. No acute infarct. Ventricles, sulci, and basilar cisterns are normal. No white matter lesions. Subarachnoid hemorrhage in the right and left frontoparietal lobes extending into the left sylvian fissure. Subarachnoid hemorrhage is also present within the left temporal lobe. Additionally there is small subdural hematoma within the left frontoparietal lobe extending to the temporal lobe with a maximum diameter of 3 mm. Subdural hematoma appears to extend along the falx CALVARIUM, SKULL BASE, AND SOFT TISSUES: No fractures or suspicious bony lesions. The paranasal sinuses and mastoid air cells are clear. Visualized orbits and globes are intact. There is a moderate-sized subgaleal hematoma over the right posterior parietal scalp. IMPRESSION: Moderate subgaleal hematoma over the right parietal skull with subarachnoid hemorrhage within bilateral frontoparietal lobes and left temporal lobe region. Additionally there is subdural hematoma over the right frontoparietal lobe with maximum diameter of 3 mm which extends over the anterior aspectof the falx. An actionable message ([place]) has been communicated via the [employer] system on 12/19/2023 7:52 PM, Message ID [id number]. WSN: [id number] Ordering Physician: Ronny Hamilton Dictated By: Rosalina Garcia MD Dictated Date/Time: 12/19/23 7:52 pm Reviewed By: Rosalina Garcia MD Signed By: Rosalina Garcia MD Signed Date/Time: 12/19/23 7:52 pm Transcribed By: RAMÓN Transcribed Date/Time: 12/19/23 7:43 pm * Exam Date Time Procedure Performing Provider Status 12/19/23 4:[address] Lumbar Spine W/ Contrast Bela Blanco; Timbo (Verified) Notes: (CT Lumbar Spine W/ Contrast) Reason For Exam: Spine fracture, lumbar, traumatic;Other: RESULT: CT Lumbar Spine W/ Contrast CT Chest W/ Contrast, CT Abd/Pelvis W/ IV Contrast Only, CT Thoracic Spine W/ Contrast, CT Lumbar Spine W/ Contrast INDICATION: Reason: Other:; Chest trauma, blunt; Clinical Question(s): Other:; Aortic hilar injury TECHNIQUE: Helical CT scan of the chest, abdomen, and pelvis with IV contrast, formatted in 3 planes. The original dataset was reconstructed with a small field of view around the thoracic and lumbar spine utilizing soft tissue and bone algorithm reconstructions in 3 planes. 100 cc of Omnipaque 300 was administered intravenously. This study was performed without oral contrast. Weight-based protocol was performed using automatic exposure control. CTDIvol Body: 8.60 mGy, DLP Body: 675 mGy*cm. COMPARISON: This examination was performed emergently using a temporary medical record and no priorimaging or medical history was available for review at the time of this interpretation. FINDINGS: Wigs Salesperson view findings, lines and tubes: None. Trachea and airways: Patent without evidence of tracheal or endobronchial lesion. Lungs and pleura: Calcified granuloma in the left lower lobe. Mild apical predominant paraseptal and edema. Bibasilar atelectasis. Otherwise clear lungs. No effusion or pneumothorax. Mediastinum and vincenzo: No mass or hematoma. Mild prominence of the right upper paratracheal node measuring 8 mm short axis, not meeting size artery for enlargement. No esophageal abnormality. Normal thyroid. Heart: Heart is normal in size. No pericardial effusion. No coronary arterial calcifications identified. Aorta: Mild vascular calcification but no aneurysm. Pulmonary arteries: Normal caliber. No evidence of pulmonary embolism on this study performed without angiographic technique. Chest wall soft tissues: No acute abnormality. Diaphragm: Intact. Liver: Normal in attenuation and morphology. No suspicious lesion. Gallbladder: No CT evidence of gallbladder pathology. Bile ducts: No biliary ductal dilation. Spleen: Normal in size. Pancreas: No suspicious lesion or ductal dilatation. Adrenal glands: No nodule. Kidneys and ureters: No hydronephrosis, stone, or suspicious lesion. Bladder: No wall thickening or surrounding stranding. Reproductive organs: Unremarkable. Stomach, small bowel, and large bowel: Normal caliber stomach and bowel loops. No surrounding inflammatory changes. Appendix: No evidence of acute appendicitis. Peritoneum and retroperitoneum: No ascites or pneumoperitoneum. No omental or mesenteric lesions. Lymph nodes: No enlarged lymph nodes. Blood vessels: Moderate atherosclerotic vascular calcification. No aortic aneurysm. No evidence of venous thrombosis. Abdominal and pelvic wall soft tissues: No acute abnormality. Bones: Nondisplaced fracture of the right posterior 11th rib. Mildly displaced fracture of the right posterior 12th rib. Mildly displaced fractures of the right transverse processes of T12, L1, L2, and L3, as well as subtle nondisplaced fracture through the right transverse process of L4. No other acute fracture is seen. Thoracic and lumbar vertebral body heights are maintained. Multilevel Schmorl's nodes and loss of disc space is noted, with small endplate osteophytes. No high-grade spinal stenosis is seen. IMPRESSION: 1. Acute fractures of the right posterior 11th and 12th ribs and right transverse processes of T12-L4. 2. No other acute intra-thoracic or intra-abdominal injury. WSN: [id number] Ordering Physician: Delmis Garcias Dictated By: Amita Herrmann MD Dictated Date/Time: 12/19/23 5:35 pm Reviewed By: Amita Herrmann MD Signed By: Amita Herrmann MD Signed Date/Time: 12/19/23 5:35 pm Transcribed By: RAMÓN Transcribed Date/Time: 12/19/23 5:26 pm * Exam Date Time Procedure Performing Provider Status 12/19/23 4:[address] Thoracic Spine W/ Contrast Arelis Blanco; Auth (Verified) Notes: (CT Thoracic Spine W/ Contrast) Reason For Exam: Spine fracture, thoracic, traumatic;Other: RESULT: CT Thoracic Spine W/ Contrast CT Chest W/ Contrast, CT Abd/Pelvis W/ IV Contrast Only, CT Thoracic Spine W/ Contrast, CT Lumbar Spine W/ Contrast INDICATION: Reason: Other:; Chest trauma, blunt; Clinical Question(s): Other:; Aortic hilar injury TECHNIQUE: Helical CT scan of the chest, abdomen, and pelvis with IV contrast, formatted in 3 planes. The original dataset was reconstructed with a small field of view around the thoracic and lumbar spine utilizing soft tissue and bone algorithm reconstructions in 3 planes. 100 cc of Omnipaque 300 was administered intravenously. This study was performed without oral contrast. Weight-based protocol was performed using automatic exposure control. CTDIvol Body: 8.60 mGy, DLP Body: 675 mGy*cm. COMPARISON: This examination was performed emergently using a temporary medical record and no priorimaging or medical history was available for review at the time of this interpretation. FINDINGS: Wigs Salesperson view findings, lines and tubes: None. Trachea and airways: Patent without evidence of tracheal or endobronchial lesion. Lungs and pleura: Calcified granuloma in the left lower lobe. Mild apical predominant paraseptal and edema. Bibasilar atelectasis. Otherwise clear lungs. No effusion or pneumothorax. Mediastinum and vincenzo: No mass or hematoma. Mild prominence of the right upper paratracheal node measuring 8 mm short axis, not meeting size artery for enlargement. No esophageal abnormality. Normal thyroid. Heart: Heart is normal in size. No pericardial effusion. No coronary arterial calcifications identified. Aorta: Mild vascular calcification but no aneurysm. Pulmonary arteries: Normal caliber. No evidence of pulmonary embolism on this study performed without angiographic technique. Chest wall soft tissues: No acute abnormality. Diaphragm: Intact. Liver: Normal in attenuation and morphology. No suspicious lesion. Gallbladder: No CT evidence of gallbladder pathology. Bile ducts: No biliary ductal dilation. Spleen: Normal in size. Pancreas: No suspicious lesion or ductal dilatation. Adrenal glands: No nodule. Kidneys and ureters: No hydronephrosis, stone, or suspicious lesion. Bladder: No wall thickening or surrounding stranding. Reproductive organs: Unremarkable. Stomach, small bowel, and large bowel: Normal caliber stomach and bowel loops. No surrounding inflammatory changes. Appendix: No evidence of acute appendicitis. Peritoneum and retroperitoneum: No ascites or pneumoperitoneum. No omental or mesenteric lesions. Lymph nodes: No enlarged lymph nodes. Blood vessels: Moderate atherosclerotic vascular calcification. No aortic aneurysm. No evidence of venous thrombosis. Abdominal and pelvic wall soft tissues: No acute abnormality. Bones: Nondisplaced fracture of the right posterior 11th rib. Mildly displaced fracture of the right posterior 12th rib. Mildly displaced fractures of the right transverse processes of T12, L1, L2, and L3, as well as subtle nondisplaced fracture through the right transverse process of L4. No other acute fracture is seen. Thoracic and lumbar vertebral body heights are maintained. Multilevel Schmorl's nodes and loss of disc space is noted, with small endplate osteophytes. No high-grade spinal stenosis is seen. IMPRESSION: 1. Acute fractures of the right posterior 11th and 12th ribs and right transverse processes of T12-L4. 2. No other acute intra-thoracic or intra-abdominal injury. WSN: [id number] Ordering Physician: Delmis Garcias Dictated By: Amita Herrmann MD Dictated Date/Time: 12/19/23 5:35 pm Reviewed By: Amita Herrmann MD Signed By: Amita Herrmann MD Signed Date/Time: 12/19/23 5:35 pm Transcribed By: CSB Transcribed Date/Time: 12/19/23 5:26 pm * Exam Date Time Procedure Performing Provider Status 12/19/23 4:[address] Abd/Pelvis W/ IV Contrast Only Venkat liang Arelis; Auth (Verified) Notes: (CT Abd/Pelvis W/ IV Contrast Only) Reason For Exam: Abd trauma, blunt;Other: RESULT: CT Abd/Pelvis W/ IV Contrast Only CT Chest W/ Contrast, CT Abd/Pelvis W/ IV Contrast Only, CT Thoracic Spine W/ Contrast, CT Lumbar Spine W/ Contrast INDICATION: Reason: Other:; Chest trauma, blunt; Clinical Question(s): Other:; Aortic hilar injury TECHNIQUE: Helical CT scan of the chest, abdomen, and pelvis with IV contrast, formatted in 3 planes. The original dataset was reconstructed with a small field of view around the thoracic and lumbar spine utilizing soft tissue and bone algorithm reconstructions in 3 planes. 100 cc of Omnipaque 300 was administered intravenously. This study was performed without oral contrast. Weight-based protocol was performed using automatic exposure control. CTDIvol Body: 8.60 mGy, DLP Body: 675 mGy*cm. COMPARISON: This examination was performed emergently using a temporary medical record and no priorimaging or medical history was available for review at the time of this interpretation. FINDINGS: Wigs Salesperson view findings, lines and tubes: None. Trachea and airways: Patent without evidence of tracheal or endobronchial lesion. Lungs and pleura: Calcified granuloma in the left lower lobe. Mild apical predominant paraseptal and edema. Bibasilar atelectasis. Otherwise clear lungs. No effusion or pneumothorax. Mediastinum and vincenzo: No mass or hematoma. Mild prominence of the right upper paratracheal node measuring 8 mm short axis, not meeting size artery for enlargement. No esophageal abnormality. Normal thyroid. Heart: Heart is normal in size. No pericardial effusion. No coronary arterial calcifications identified. Aorta: Mild vascular calcification but no aneurysm. Pulmonary arteries: Normal caliber. No evidence of pulmonary embolism on this study performed without angiographic technique. Chest wall soft tissues: No acute abnormality. Diaphragm: Intact. Liver: Normal in attenuation and morphology. No suspicious lesion. Gallbladder: No CT evidence of gallbladder pathology. Bile ducts: No biliary ductal dilation. Spleen: Normal in size. Pancreas: No suspicious lesion or ductal dilatation. Adrenal glands: No nodule. Kidneys and ureters: No hydronephrosis, stone, or suspicious lesion. Bladder: No wall thickening or surrounding stranding. Reproductive organs: Unremarkable. Stomach, small bowel, and large bowel: Normal caliber stomach and bowel loops. No surrounding inflammatory changes. Appendix: No evidence of acute appendicitis. Peritoneum and retroperitoneum: No ascites or pneumoperitoneum. No omental or mesenteric lesions. Lymph nodes: No enlarged lymph nodes. Blood vessels: Moderate atherosclerotic vascular calcification. No aortic aneurysm. No evidence of venous thrombosis. Abdominal and pelvic wall soft tissues: No acute abnormality. Bones: Nondisplaced fracture of the right posterior 11th rib. Mildly displaced fracture of the right posterior 12th rib. Mildly displaced fractures of the right transverse processes of T12, L1, L2, and L3, as well as subtle nondisplaced fracture through the right transverse process of L4. No other acute fracture is seen. Thoracic and lumbar vertebral body heights are maintained. Multilevel Schmorl's nodes and loss of disc space is noted, with small endplate osteophytes. No high-grade spinal stenosis is seen. IMPRESSION: 1. Acute fractures of the right posterior 11th and 12th ribs and right transverse processes of T12-L4. 2. No other acute intra-thoracic or intra-abdominal injury. WSN: [id number] Ordering Physician: Delmis Garcias Dictated By: Amita Herrmann MD Dictated Date/Time: 12/19/23 5:35 pm Reviewed By: Amita Herrmann MD Signed By: Amita Herrmann MD Signed Date/Time: 12/19/23 5:35 pm Transcribed By: RAMÓN Transcribed Date/Time: 12/19/23 5:26 pm * Exam Date Time Procedure Performing Provider Status 12/19/23 4:[address] Chest W/ Contrast Arelis Blanco; Auth (Verified) Notes: (CT Chest W/ Contrast) Reason For Exam: Chest trauma, blunt;Other: RESULT: CT Chest W/ Contrast CT Chest W/ Contrast, CT Abd/Pelvis W/ IV Contrast Only, CT Thoracic Spine W/ Contrast, CT Lumbar Spine W/ Contrast INDICATION: Reason: Other:; Chest trauma, blunt; Clinical Question(s): Other:; Aortic hilar injury TECHNIQUE: Helical CT scan of the chest, abdomen, and pelvis with IV contrast, formatted in 3 planes. The original dataset was reconstructed with a small field of view around the thoracic and lumbar spine utilizing soft tissue and bone algorithm reconstructions in 3 planes. 100 cc of Omnipaque 300 was administered intravenously. This study was performed without oral contrast. Weight-based protocol was performed using automatic exposure control. CTDIvol Body: 8.60 mGy, DLP Body: 675 mGy*cm. COMPARISON: This examination was performed emergently using a temporary medical record and no priorimaging or medical history was available for review at the time of this interpretation. FINDINGS: Wigs Salesperson view findings, lines and tubes: None. Trachea and airways: Patent without evidence of tracheal or endobronchial lesion. Lungs and pleura: Calcified granuloma in the left lower lobe. Mild apical predominant paraseptal and edema. Bibasilar atelectasis. Otherwise clear lungs. No effusion or pneumothorax. Mediastinum and vincenzo: No mass or hematoma. Mild prominence of the right upper paratracheal node measuring 8 mm short axis, not meeting size artery for enlargement. No esophageal abnormality. Normal thyroid. Heart: Heart is normal in size. No pericardial effusion. No coronary arterial calcifications identified. Aorta: Mild vascular calcification but no aneurysm. Pulmonary arteries: Normal caliber. No evidence of pulmonary embolism on this study performed without angiographic technique. Chest wall soft tissues: No acute abnormality. Diaphragm: Intact. Liver: Normal in attenuation and morphology. No suspicious lesion. Gallbladder: No CT evidence of gallbladder pathology. Bile ducts: No biliary ductal dilation. Spleen: Normal in size. Pancreas: No suspicious lesion or ductal dilatation. Adrenal glands: No nodule. Kidneys and ureters: No hydronephrosis, stone, or suspicious lesion. Bladder: No wall thickening or surrounding stranding. Reproductive organs: Unremarkable. Stomach, small bowel, and large bowel: Normal caliber stomach and bowel loops. No surrounding inflammatory changes. Appendix: No evidence of acute appendicitis. Peritoneum and retroperitoneum: No ascites or pneumoperitoneum. No omental or mesenteric lesions. Lymph nodes: No enlarged lymph nodes. Blood vessels: Moderate atherosclerotic vascular calcification. No aortic aneurysm. No evidence of venous thrombosis. Abdominal and pelvic wall soft tissues: No acute abnormality. Bones: Nondisplaced fracture of the right posterior 11th rib. Mildly displaced fracture of the right posterior 12th rib. Mildly displaced fractures of the right transverse processes of T12, L1, L2, and L3, as well as subtle nondisplaced fracture through the right transverse process of L4. No other acute fracture is seen. Thoracic and lumbar vertebral body heights are maintained. Multilevel Schmorl's nodes and loss of disc space is noted, with small endplate osteophytes. No high-grade spinal stenosis is seen. IMPRESSION: 1. Acute fractures of the right posterior 11th and 12th ribs and right transverse processes of T12-L4. 2. No other acute intra-thoracic or intra-abdominal injury. WSN: [id number] Ordering Physician: Delmis Garcias Dictated By: Amita Herrmann MD Dictated Date/Time: 12/19/23 5:35 pm Reviewed By: Amita Herrmann MD Signed By: Amita Herrmann MD Signed Date/Time: 12/19/23 5:35 pm Transcribed By: RAMÓN Transcribed Date/Time: 12/19/23 5:26 pm Vital Signs Most recent to oldest [Reference Range]: 1 2 3 Height 174 cm (12/26/23 12:47 PM) 174 cm (12/25/23 3:35 PM) 174 cm (12/25/23 8:13 AM) Weight 77.2 kg (12/24/23 9:40 AM) 77.2 kg (12/24/23 9:39 AM) 76.1 kg (12/20/23 1:42 PM) Oxygen Saturation [94-100 %] 100 % (12/26/23 12:47 PM) 97 % (12/26/23 8:00 AM) 99 % (12/26/23 3:00 AM) Pulse Rate [55-90 bpm] 66 bpm (12/26/23 12:47 PM) 61 bpm (12/26/23 8:00 AM) 66 bpm (12/26/23 3:00 AM) Body Mass Index [18.5-24.99 kg/m2] 25.14 kg/m2 *H* (12/20/23 1:42 PM) 25.63 kg/m2 *H* (12/20/23 6:16 AM) 25.63 kg/m2 *H* (12/19/23 10:28 PM) Blood Pressure [90-138/55-84 mm Hg] 144/66mm Hg *H* (12/26/23 12:47 PM) 125/70mm Hg (12/26/23 8:00 AM) 114/66mm Hg (12/26/23 3:00 AM) Respiratory Rate [16-30 br/min] 18 br/min (12/26/23 12:47 PM) 18 br/min (12/26/23 9:53 AM) 18 br/min (12/26/23 9:53 AM) Temperature [96.8-100.4 DegF] 98.6 DegF (12/26/23 12:47 PM) 98.5 DegF (12/26/23 8:00 AM) 98.2 DegF (12/26/23 3:00 AM) Liters per Minute 0 L/min (12/20/23 7:59 PM) 2 L/min (12/20/23 3:00 PM) 2 L/min (12/20/23 1:42 PM) Mode of Delivery (Oxygen) Room air (12/26/23 12:47 PM) Room air (12/26/23 8:00 AM) Room air (12/26/23 3:00 AM) Blood pressure sites Arm, left (12/26/23 12:47 PM) Arm, right (12/26/23 8:00 AM) Arm, right (12/26/23 3:00 AM) Temperature Route Oral (12/26/23 12:47 PM) Oral (12/26/23 8:00 AM) Temporal (12/26/23 3:00 AM) Dry Weight 77.6 kg (12/20/23 6:16 AM) 77.6 kg (12/19/23 10:28 PM) Weight Obtained Via Bed scale (12/20/23 1:42 PM) Bed scale (12/20/23 6:16 AM) Dry Weight Obtained Via Bed scale (12/20/23 6:16 AM) Social History Social History Type Response Smoking Status 5-9 cigarettes (betw een 1/4 to 1/2 pack)/day in last 30 days entered on: 03/21/23 Sex Admission evaluation note * Monica YOUNG, Ahsan: SIGN, MODIFY Arelis Noonan MD: MODIFY, PERFORM Arelis Noonan MD: PERFORM, MODIFY Arelis Noonan MD: MODIFY, SIGN Arelis Noonan MD: SIGN, VERIFY Arelis Noonan MD: VERIFY Donya Covington MD: MODIFY, MODIFY Donya Covington MD: MODIFY, SIGN Donya Covington MD: SIGN Katerine YOUNG, Delmis: MODIFY, MODIFY Katerine YOUNG, Delmis: MODIFY, MODIFY Katerine YOUNG, Delmis: MODIFY, MODIFY Katerine YOUNG, Delmis: MODIFY, MODIFY Katerine YOUNG, Delmis: MODIFY, MODIFY Katerine YOUNG, Delmis: MODIFY, MODIFY Katerine YOUNG, Delmis: MODIFY, MODIFY Katerine YOUNG, Delmis: MODIFY, MODIFY Katerine YOUNG, Delmis: MODIFY Event Display: Admission Note Authored Date: Patient: KRIS FLANAGAN Age: 58 years Sex: Male : 1965 Associated Diagnoses: None Author: Arelis Noonan MD Trauma Activation Category: Category 2. Trauma History 58yoM cat2 trauma s/p fall through fiberglass root approximately 8ft. +LOC, denies EtOH, GCS 15. Per EMS, patient was working on the fiberglass roof of a trailer when he fell through roof approximately 8 feet. He was found by his friends in scorpion position with feet up. His friends rolled him over onto his back and he had a brief loss of consciousness lasting a few seconds. EMS noted that he had a hematoma to his occipital scalp. Complaining only of lower back pain and hip pain on arrival. Last vitals were BP 152/80 HR 80s, SpO2 98% on RA. On arrival he complains of pain in back of his head 6/10, lower back 7-8/10. Upon arrival, primary survey was completed and is as follows: airway patent, breath sounds present equal bilaterally, BP 132/88, pupils 2mm and reactive, GCS 15 (E4 V5 M6). Secondary survey was completed and is documented below. [place] collar was placed for c-spine precaution. As patient was log rolled and returned to supine he became dizzy , nauseated, and developed new nystagmus. IV fluids wereadministered, Fentanyl given for pain. Following CXR, the patient was taken to CT for further workup. 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 Social History Social History No qualifying data available. . Physical Examination Vital Signs: T 98.4F, BP 166/97, HR 80, RR 18, SpO2 98% on RA General: in mild acute distress, alert, awake Head: normocephalic, no abrasions, no wounds, no deformities; 7cm right occipital hematoma Face: no abrasions, no wounds; ecchymosis over right upper eyelid Eyes: pupils are 2mm, equal, round, and reactive; extraocular movement intact; Of note developed nystagmus after log roll to examine back Ears: no hemotympanum, no blood in external auditory canal, no abrasions, no hagen's sign Nose: no epistaxis, no deformity Mandible: no deformity, no malocclusion Neck: cervical-collar in place, no hematoma, no ecchymosis, no wounds, trachea midline Chest: symmetric, no deformity, sternum, chest wall, and clavicles are nontender to palpation, no crepitus appreciated Heart: regular rate and rhythm Lungs: clear to auscultation bilaterally Abdomen: soft, nondistended, nontender, no wounds, no ecchymosis, no hematoma Pelvis: stable, nontender Back: no ecchymosis, no hematoma, no wounds; abrasion over left scapula Cervical spine: no midline deformities or stepoffs, no tenaderness, cervical- collar in place Thoracic spine: no midline deformities or stepoffs; mid thoracic midline tenderness Lumbar spine: no midline deformities or stepoffs, no midline tenderness however there is right paraspinal tenderness Extremities: no long bone deformities, no wounds, no abrasions, no ecchymosis, no hematomas, full active range of motion Neurologic: GCS15; 5/5 strength and sensation to light touch intact in the bilateral upper and lower extremities Vascular: palpable dorsalis pedis and radial pulses bilaterally Results Review RESULT: Chest Portable Examination: Portable chest performed on 12/19/2023. History: Pain. Findings: A frontal view of the chest is submitted without comparison. The cardiac and mediastinal silhouettes are within normal limits. Pulmonary vascular congestion is noted. The lungs are clear. The osseous and soft tissue structures are unremarkable. IMPRESSION: Pulmonary vascular congestion. WSN: [id number] Ordering Physician: Delmis Garcias Signature Line Dictated By: Beverley Land MD Dictated Date/Time: 12/19/23 4:53 pm Reviewed By: Beverley Land MD Signed By: Beverley Land MD Signed Date/Time: 12/19/23 4:53 pm RESULT: CT Chest W/ Contrast CT Chest W/ Contrast, CT Abd/Pelvis W/ IV Contrast Only, CT Thoracic Spine W/ Contrast, CT Lumbar Spine W/ Contrast INDICATION: Reason: Other:; Chest trauma, blunt; Clinical Question(s): Other:; Aortic hilar injury TECHNIQUE: Helical CT scan of the chest, abdomen, and pelvis with IV contrast, formatted in 3 planes. The original dataset was reconstructed with a small field of view around the thoracic and lumbar spine utilizing soft tissue and bone algorithm reconstructions in 3 planes. 100 cc of Omnipaque 300 was administered intravenously. This study was performed without oral contrast. Weight-based protocol was performed using automatic exposure control. CTDIvol Body: 8.60 mGy, DLP Body: 675 mGy*cm. COMPARISON: This examination was performed emergently using a temporary medical record and no priorimaging or medical history was available for review at the time of this interpretation. FINDINGS: Wigs Salesperson view findings, lines and tubes: None. Trachea and airways: Patent without evidence of tracheal or endobronchial lesion. Lungs and pleura: Calcified granuloma in the left lower lobe. Mild apical predominant paraseptal and edema. Bibasilar atelectasis. Otherwise clear lungs. No effusion or pneumothorax. Mediastinum and vincenzo: No mass or hematoma. Mild prominence of the right upper paratracheal node measuring 8 mm short axis, not meeting size artery for enlargement. No esophageal abnormality. Normal thyroid. Heart: Heart is normal in size. No pericardial effusion. No coronary arterial calcifications identified. Aorta: Mild vascular calcification but no aneurysm. Pulmonary arteries: Normal caliber. No evidence of pulmonary embolism on this study performed without angiographic technique. Chest wall soft tissues: No acute abnormality. Diaphragm: Intact. Liver: Normal in attenuation and morphology. No suspicious lesion. Gallbladder: No CT evidence of gallbladder pathology. Bile ducts: No biliary ductal dilation. Spleen: Normal in size. Pancreas: No suspicious lesion or ductal dilatation. Adrenal glands: No nodule. Kidneys and ureters: No hydronephrosis, stone, or suspicious lesion. Bladder: No wall thickening or surrounding stranding. Reproductive organs: Unremarkable. Stomach, small bowel, and large bowel: Normal caliber stomach and bowel loops. No surrounding inflammatory changes. Appendix: No evidence of acute appendicitis. Peritoneum and retroperitoneum: No ascites or pneumoperitoneum. No omental or mesenteric lesions. Lymph nodes: No enlarged lymph nodes. Blood vessels: Moderate atherosclerotic vascular calcification. No aortic aneurysm. No evidence of venous thrombosis. Abdominal and pelvic wall soft tissues: No acute abnormality. Bones: Nondisplaced fracture of the right posterior 11th rib. Mildly displaced fracture of the right posterior 12th rib. Mildly displaced fractures of the right transverse processes of T12, L1, L2, and L3, as well as subtle nondisplaced fracture through the right transverse process of L4. No other acute fracture is seen. Thoracic and lumbar vertebral body heights are maintained. Multilevel Schmorl's nodes and loss of disc space is noted, with small endplate osteophytes. No high-grade spinal stenosis is seen. IMPRESSION: 1. Acute fractures of the right posterior 11th and 12th ribs and right transverse processes of T12-L4. 2. No other acute intra-thoracic or intra-abdominal injury. RESULT: CT Head/Brain W/O Contrast CT Head/Brain W/O Contrast, CT Cervical Spine W/O Contrast Reason: Head trauma, mod-severe; Clinical Question(s): Hematoma TECHNIQUE: Noncontrast head CT using axial technique was reconstructed in axial and coronal planes.Noncontrast spiral CT through the cervical spine was formatted in 3 planes. Automatic tube modulation was used for the cervical spine and iterative dose reconstruction was used for both the head and cervical spine to optimize scan parameters and image quality. CTDIvol Body: 13.90 mGy, DLP Body: 354 mGy*cm. CTDIvol Head: 40.90 mGy, DLP Head: 672 mGy*cm. COMPARISON: This examination was performed emergently using a temporary medical record and no priorimaging or medical history was available for review at the time of this interpretation. FINDINGS: Wigs Salesperson View Findings, Lines and Tubes: Cervical collar in place. BRAIN AND EXTRA-AXIAL SPACES: Small left frontal subarachnoid hemorrhage extending into multiple sulci. [place] left hemispheric subdural hematoma measuring up to about 3 mm (202:58), greatest overlying the left frontal region. There is trace extension of the subdural collection along left anterior falx. Subtle hypodensity is noted in the inferior left frontal lobe, with no definite parenchymal hemorrhage. No evidence of midline shift or mass effect. Slight hypodense region in the inferior left frontal lobe. [place]-white matter differentiation is well preserved. No acute infarct. Negative insular ribbon and hyperdense vessel signs. Ventricles, sulci, and basilar cisterns are normal. No white matter lesions. CALVARIUM, SKULL BASE, AND SOFT TISSUES: Subtle asymmetric widening of the right lambdoid suture may reflect mild diastasis. Otherwise, no acute calvarial fracture is seen. Subtle lucency along the left orbital floor may reflect nondisplaced fracture versus vascular channel (203:35). Moderate mucosal thickening of the bilateral ethmoid air cells with mild mucosal thickening of the left maxillary sinus. Fluid is also noted in the left maxillary sinus. Mucous retention cyst in the right sinuses. Small amount of layering fluid in the left sphenoid sinus. Mastoids are clear. Visualized orbits and globes are intact. Right posterior occipital scalp hematoma measuring up to about 1.2 x 5.7 cm (202:39). CERVICAL SPINE: No evidence of a cervical spine fracture. Vertebral body heights are maintained. Bony rings of C1-C7 are intact. Postsurgical changes from ACDF at C4-[address] No periprosthetic lucency. Loss of the normal cervical lordosis, which could be positional or due to muscle spasm. No locked or perched facet. Multilevel mild loss of disc space and endplate osteophyte formation, greatest at C5-6 and C6-7. No high-grade spinal stenosis. OTHER BONES: Tiny osseous fragment at the anterior right aspect of the T1 superior endplate appears corticated and may reflect a small ununited osteophyte. CERVICAL SOFT TISSUES AND LUNG APICES: Normal soft tissues. Mild apical paraseptal emphysematous change. Normal thyroid. IMPRESSION: 1. Small left frontal subarachnoid hemorrhage, as well as and left hemispheric subdural hematoma measuring up to 3 mm overlying the left frontal lobe. No evidence of midline shift. Relative hypodensity in the inferior left frontal lobe may represent an early cerebral contusion. 2. Moderate right occipital superficial scalp hematoma, with possible mild diastases of the subjacent right lambdoid suture. 3. Question of left inferior orbital wall fracture versus vascular channel. Correlate with any focal tenderness in this region. 4. No evidence of acute fracture or subluxation of the cervical spine. Procedure FAST Exam Normal - no fluid x 4 quadrants. Impression and Plan 58yoM cat2 trauma s/p fall through fiberglass roof 8ft. +LOC, ?EtOH, GCS 15. During the secondary exam he developed new nystagmus as well as dizziness and nausea. Connor CT scans obtained with injuries catalogued below. Injuries/Diagnoses Right occipital hematoma Right upper eyelid ecchymosis Concussion Right posterior 11-12th rib fractures Right transverse process T12-L4 fractures Left frontal SAH Left SDH 3mm Interventions None Consultants Neurosurgery -- pending Plan Rib fracture protocol AM trauma tertiary Final plans to be addended by the night team pending neurosurgical evaluation Discussed with Dr. Anderson Please page??Trauma Surgery??with any additional questions or??concerns: [phone] * Nadya YOUNG, Donya: PERFORM Event Display: Admission Note Authored Date: Neurosurgery recs: No acute neurosurgical intervention Every 2 hour neuro checks Stat CT head for decline in neuro exam Head of bed greater than 30 degrees Systolic blood pressure less than 140 Hold??anticoagulation/antiplatelet medications??including chemical??DVT prophylaxis Keppra 500 mg twice daily??x 7 days No need for??bracing for TP fractures. ??Pain control as needed * Monica YOUNG, [facility]: PERFORM Event Display: Admission Note Authored Date: I have seen and evaluated this patient on the above documented date. I have discussed the case and its management with the resident team and APPs as documented in the progress note. Seen upon arrival as a Cat 2 Trauma activation. 58 M -Fall from height 8' resulting in: Right occipital hematoma Right upper eyelid ecchymosis Right posterior 11-12th rib fractures Right transverse process T12-L4 fractures Left frontal SAH Left SDH 3mm -GCS 15, sensory motor grossly intact, headache, dizziness. -Patient on ASA Plan -Admission to Trauma Surgery -Neurosurgery consultation. -Neurochecks -Repeat CT head in 6 hrs. Cardiology * Event Display: Cardiac Rhythm Strips Authored Date: Hospital Progress note * Gustavo MILLER, Marybeth: VERIFY, PERFORM, SIGN Event Display: Progress Note Hospital Authored Date: Patient: KRIS FLANAGAN Age: 58 years Sex: Male : 1965 Associated Diagnoses: None Author: Gustavo MILLER, Marybeth Findings Problem Related to Alteration in Neurological : Alteration in Neurological Function/new 12/26/2023 9:00 EDT Alteration in Neuro status Related to Other: SAH/FA//FX & T12 L4 Goals & Outcomes, Neurological Lab studies/diagnostic tests within pt specific limits, Pt is safe with transfers & activities, Pt will be discharged without infection, Pt will be Neurologically stable, Pt will become pain free with appropriate intervention, Pt will maintain intact skin integrity, Pt will remain free from injury, Pt will resume/maintain adequate cardiac output, Pt will state importance of adhering to medication regime, Pt/caregiver will receive psychosocial support as needed, Pt/caregiver will state understanding of rehab plan, Pt/caregiver will state strategies to reduce risk factors, Pt/caregiver will state understanding aspiration precautions, Pt/caregiver will state understanding of plan/goals of care, Pt/caregiver will state understanding of the D/C plan, Resolved problem, Goals/Outcomes met, Pt will be free from complications r/t seizure activity Interventions, Neurological Assess/monitor for abnormal posturing, Assess/monitor for gaze pattern/extraocular movements, Assess/monitor for increased Intracranial Pressure, Assess/monitor neurologicstatus, Assess/monitor VS per unit standards & prn, Call/Report variances in assessments to provider, Monitor speech fluency, aphasia, word finding difficulty, Physical assessment per unit standards, Provide emotional support to Pt/caregiver Goals/Interventions, Neurological Yes Neurological, Problem Start 12/20/2023 6:39 Reviewed plan with, Neurological Patient Patient Progression, Neurological Pt progressing according to plan . Nursing Data Neurological Data. : Neurological Data. 12/25/2023 21:03 EDT Tongue Disposition Midline Neurological Symptoms Back pain, Headache: persistent, changing or sudden, Weakness or loss of muscle strength Level of Consciousness Full Consciousness Orientated to person, place, time Person, Place, Time, Event Facial Symmetry Intact Pupil description, left Regular Pupil description, right Regular Pupil reaction, left Brisk Pupil reaction, right Brisk Strength LUE 5-Active movement against gravity & full resistance Strength RUE 5-Active movement against gravity & full resistance Strength LLE 5-Active movement against gravity & full resistance Strength RLE 5-Active movement against gravity & full resistance Tone LUE Normal Tone RUE Normal Tone LLE Normal Tone RLE Normal Sensation LUE Intact Sensation RUE Intact Sensation LLE Intact Sensation RLE Intact Movement LUE To command, Spontaneous Movement RUE To command, Spontaneous Movement LLE To command, Spontaneous Movement RLE To command, Spontaneous 1 - 10 Pain Scale Score 8 Neuro WNL except Eyes and Movements Conjugate gaze: Move in same direction at same speed Headache Moderate Headaches, Duration Constant Swallow - Neuro Normal . Evaluation Pt. Is A&O x4. Pt. denies headache, dizziness, blurry and double vision. Visual elliott appear to be intact, no cuts or deficits reported or observed, + PEERL. Bruise to right eye. 9/10 back pain,PRN medications given with some relief. Face is symmetrical, no changes in speech or swallow reported or observed, takes pills whole with water. GARCIA 5/5 denies tingling. Complains of some numbness to low back. Pt. ambulates stand by assist. Lung sounds are clear, occasional cough no SOB or chest pain reported. Abdomen is soft, non-tender, + bowel sounds in all four quadrants last BM 12/21 all bowel medications given. Pt wanted to hold, voiding without complaint. Surgical incision on head, dressing clean dry and intact. Safety precautions in place Bed alarm activated, call arechiga within reach, bed in lowest position, wheels locked. Pt to be discharged, Report called to [place] 3. . Discharge Information Case Management Discharge Plan : Case Management Discharge Plan Data 12/26/2023 11:20 EDT Discharge Level of Care at Discharge Inpatient Rehab Facility/Unit Discharge Nursing Homes/Rehab Facilities [facility] Rehab Discharge Transportation Arranged [facility] [phone] [facility] [phone] Discharge Arranged Transport Date/Time 12/26/2023 14:00 Mode of Transportation Arranged Ambulance Service Categories #1 Occupational Therapy, Physical Therapy, Residential Service Start Date and Time #1 12/26/2023 14:00 Name of Person Notified of Transfer the pt is aware of the planned discahrge for rehab today Rehabilitation Discharge : Rehab Discharge Index 12/25/2023 10:19 EDT Transfer tub/shower OT Plan Min assist 12/25/2023 9:12 EDT Walker: distance 20-50 12/21/2023 9:59 EDT Transfer tub/shower OT Plan Min assist 12/21/2023 9:28 EDT Comments on treatment indicated 58 yo M c PMH including CVA c residual R sided deficits presents after ~8ft fall. +head strike c + LOC. CT head revealed a thin left-sided SDH as well as left frontal traumatic SAH, rib fx 11-12, R TP fx T12-L4, per neurosurgery no bracing needed Walker: distance < 10 Distance pt will ambulate 50ft with RW Full chart review completed Yes Hospital course imaging Other findings barriers for safe d/c home: assist level, impaired balance, weakness, unable to amb household/community distances, fall risk, decreased endurance Plan of care PT Gait training, Transfer training, Therapeutic exercise, Functional Activities, Balance training, Neuromuscular education * Reji MILLER, Gypsy: PERFORM, MODIFY, MODIFY, SIGN, VERIFY Event Display: Progress Note Hospital Authored Date: Patient: KRIS FLANAGAN Age: 58 years Sex: Male : 1965 Associated Diagnoses: None Author: Reji MILLER, Gypsy Findings Problem Related to Alteration in Neurological : Alteration in Neurological Function/new 12/26/2023 0:00 EDT Alteration in Neuro status Related to Other: SAH/FA//FX 12TH & T12 L4 Goals & Outcomes, Neurological Lab studies/diagnostic tests within pt specific limits, Pt is safe with transfers & activities, Pt will be discharged without infection, Pt will be Neurologically stable, Pt will become pain free with appropriate intervention, Pt will maintain intact skin integrity, Pt will remain free from injury, Pt will resume/maintain adequate cardiac output, Pt will state importance of adhering to medication regime, Pt/caregiver will receive psychosocial support as needed, Pt/caregiver will state understanding of rehab plan, Pt/caregiver will state strategies to reduce risk factors, Pt/caregiver will state understanding aspiration precautions, Pt/caregiver will state understanding of plan/goals of care, Pt/caregiver will state understanding of the D/C plan, Resolved problem, Goals/Outcomes met, Pt will be free from complications r/t seizure activity Interventions, Neurological Assess/monitor for abnormal posturing, Assess/monitor neurologic status, Assess/monitor VS per unit standards & prn, Call/Report variances in assessments to provider, Collaborate w/ provider to implement appropriate guidelines, Collaborate with provider re: medication regime, Document & Monitor O2 Sats; Administer O2 as ordered, Emergency airway equipment at bedside, Identify psychosocial issues related to diagnosis/illness, If no bowel movement in 3 days activate bowel regime, [place] alternate means of communication, Keep patient's head & body in good alignment, Maintain HOB at least 30 deg, Maintain normothermia, report temp >101.5 F, Maintainpatient safety if unsteady gait, Maintain strict intake & output, Monitor Fluid & Electrolytes, Serum Osmolarity, Monitor for headaches, nausea, vomiting, Monitor speech fluency, aphasia, word finding difficulty, Physical assessment per unit standards, Provide emotional support to Pt/caregiver, Teach & encourage deep breath & cough exercises, Teach and encourage use of Incentive spirometer, Teach pt/caregiver discharge plan & follow up care, Teach pt/caregiver on plan of care , treatment, s/s & meds, Teach pt/caregiver on use of pain scale BH Goals/Interventions, Neurological Yes Neurological, Problem Start 12/20/2023 6:39 Reviewed plan with, Neurological Patient Patient Progression, Neurological Pt progressing according to plan . Nursing Data Neurological Data. : Neurological Data. 12/25/2023 21:03 EDT Tongue Disposition Midline Neurological Symptoms Back pain, Headache: persistent, changing or sudden, Weakness or loss of muscle strength Level of Consciousness Full Consciousness Orientated to person, place, time Person, Place, Time, Event Facial Symmetry Intact Pupil description, left Regular Pupil description, right Regular Pupil reaction, left Brisk Pupil reaction, right Brisk Strength LUE 5-Active movement against gravity & full resistance Strength RUE 5-Active movement against gravity & full resistance Strength LLE 5-Active movement against gravity & full resistance Strength RLE 5-Active movement against gravity & full resistance Tone LUE Normal Tone RUE Normal Tone LLE Normal Tone RLE Normal Sensation LUE Intact Sensation RUE Intact Sensation LLE Intact Sensation RLE Intact Movement LUE To command, Spontaneous Movement RUE To command, Spontaneous Movement LLE To command, Spontaneous Movement RLE To command, Spontaneous 1 - 10 Pain Scale Score 8 Neuro WNL except Eyes and Movements Conjugate gaze: Move in same direction at same speed Headache Moderate Headaches, Duration Constant Swallow - Neuro Normal . Evaluation A&Ox4. Able to make needs known and follow commands. Speech clear, face symmetric, PERRL. GARCIA 01/12. Pt c/o ORONA and back pain, medicated per MAR with positive effect. No c/o chest pain or SOB. IS and acapella encouraged. VSS on RA. Cont of B&B. last BM 12/21, scheduled bowel meds administered. Pt declining suppository at this time. Bruise to R eye. Safety maintained. See CIS for more information. . Discharge Information Rehabilitation Discharge : Rehab Discharge Index 12/25/2023 10:19 EDT Transfer tub/shower OT Plan Min assist 12/25/2023 9:12 EDT Walker: distance 20-50 12/21/2023 9:59 EDT Transfer tub/shower OT Plan Min assist 12/21/2023 9:28 EDT Comments on treatment indicated 58 yo M c PMH including CVA c residual R sided deficits presents after ~8ft fall. +head strike c + LOC. CT head revealed a thin left-sided SDH as well as left frontal traumatic SAH, rib fx 11-12, R TP fx T12-L4, per neurosurgery no bracing needed Walker: distance < 10 Distance pt will ambulate 50ft with RW Full chart review completed Yes Hospital course imaging Other findings barriers for safe d/c home: assist level, impaired balance, weakness, unable to amb household/community distances, fall risk, decreased endurance Plan of care PT Gait training, Transfer training, Therapeutic exercise, Functional Activities, Balance training, Neuromuscular education * Bee ACOSTA, [place]: PERFORM Event Display: Progress Note Hospital Authored Date: Patient: ??KRIS FLANAGAN ? Age:??58 Years?Sex:??Male?:??1965?? Subjective No acute events overnight. Pain controlled at this time.??Denies nausea or vomiting. Voiding without issue. ?? Ambulating in the room. Denies fever/chills, chest pain or SOB. ? Review of Systems As per HPI Physical Exam Vitals & Measurements T:??98.4?F?? HR:??91??(Peripheral)?? RR:??16?? RR:??16?? BP:? SpO2:??97%?? HT:??174??cm?? WT:??77.2??kg?? BMI:??25.14?? Constitutional: Alert, in no acute distress. Neuro: Oriented to person, place, and time. No focal neurological deficits. Head: Normocephalic, atraumatic. Eyes: PERRL. EOMI. ENT: Oropharynx clear, moist mucous membranes. Neck: no JVD,??full ROM. Respiratory: Non labored, on room air Cardiovascular: regular rate, regular rhythm, on room air GI: Abdomen soft, nontender, not distention. No guarding, no rebound. Assessment/Plan This is a 58yoM cat2 trauma s/p fall through fiberglass roof ~8ft. +LOC, denies EtOH, GCS 15 +ASA. Per EMS, patient was working on the fiberglass roof of a trailer when he fell through roof approximately 8 feet. He was found by his friends in scorpion position with feet up. He underwent a panscanwhich revealed R 11-12 rib fractures, T12-L4 transverse process fx on the R, L SDH/SAH. ?? Injuries R 11-12 rib fractures T12-L4 transverse process fx on the R L SDH/SAH ?? Consultants Neurosurgery: - No acute neurosurgical intervention. No routine f/u needed. - Stat CT head for decline in neuro exam. - HOB >30 degrees. - SBP <140 - Keppra 500 mg twice daily??x 7 days (stop on??12/25 ) - No need for??bracing for TP fractures. - hold ASA x4 weeks, then re-start ? Plan: - PT - dispo - OT rec acute rehab [id number] - multimodal pain managment - recs per neurology as above ? Diet: Regular DVT ppx: SQH Code: Full ? Case to be??discussed with Dr. Cherry Pager [phone] ?? Intake and Output Intake and Output Results?? This visit (24 hour periods starting at 07:00 EDT)? 12/25/23 *?? 12/24/23?? 12/23/23?? Total Summary?Intake mL?? 360?? 120?? 720?Output mL?? --?? --?? --?Fluid Balance ?? 360?? 120?? 720?? Intake (1)?Oral Fluids mL?? 360?? 120?? 720?Total?? 360?? 120?? 720?? Output (0)? Counts (2)?Oral Fluids mL?? 360?? 120?? 720?Urine Count ?? 2?? 2?? --? * This column has not completed the indicated time period.?? Labs Last 24 Hours BLOOD COUNT & DIFF ? Event Name?? Event Result?? Date/Time?? WBC 7 k/mm3 12/25/23 01:24:00 RBC 4.39 m/mm3??Low 12/25/23 01:24:00 Hgb 13.6 Gm/dL??Low 12/25/23 01:24:00 Hct 40.6 % 12/25/23 01:24:00 MCV 92.5 femtoliters 12/25/23 01:24:00 MCH 31 pg 12/25/23 01:24:00 MCHC 33.5 g/dL 12/25/23 01:24:00 Platelet Count 366 k/mm3 12/25/23 01:24:00 MPV 8.9 femtoliters??Low 12/25/23 01:24:00 Nucleated RBC (Automated) 0 #/100 WBC'S 12/25/23 01:24:00 ? CHEM GENERAL ? Event Name?? Event Result?? Date/Time?? Sodium 137 mmol/L 12/25/23 01:24:00 Chloride 103 mmol/L 12/25/23 01:24:00 Bicarbonate Level 24 mmol/L 12/25/23 01:24:00 Anion Gap 10 12/25/23 01:24:00 Glucose Level 107 mg/dL??High 12/25/23 01:24:00 BUN 13 mg/dL 12/25/23 01:24:00 Creatinine-Blood 0.6 mg/dL??Low 12/25/23 01:24:00 Calcium, Ionized pH Corrected 1.26 mmol/L 12/25/23 01:24:00 Phosphorus 3.8 mg/dL 12/25/23 01:24:00 Magnesium 2.6 mg/dL??High 12/25/23 01:24:00 ? Consult note * Aimee Portillo: PERFORM Event Display: Consultation Note Authored Date: Patient: ??KRIS FLANAGAN ? Age:??58 Years?Sex:??Male?:??1965?? Provider Clinical Summary Neurosurgery consult note Reason: Left SDH,??scattered??traumatic??SAH Attending: Dr. Lawrence Chief Complaint/Reason for Consult Category 2 trauma, fall??with left SDH,??traumatic SAH History of Present Illness This is a 58-year-old male, with a history of??CVA in April 2023??with residual right-sided deficits,??HLD,??recent cervical fusion who presented to??the ED after a fall??through fiberglass roof??ofa trailer??approximately 8 feet.?? He struck his head with + LOC. ??CT head revealed a??thin left-sided??SDH as well as??left frontal??traumatic subarachnoid hemorrhage. He is on 81 mg aspirin daily.?? He reports??headache and back pain??as well as intermittent??dizziness??and nausea.?? Denies vision changes,??numbness, tingling, weakness, vomiting.?? Review of Systems See HPI Physical Exam Vitals & Measurements T:??97.8?F?? HR:??77??(Peripheral)?? RR:??22?? BP:??141/77?? SpO2:??91%?? General: appears stated age, awake,alert and NAD, [place] collar in place HEENT: NC/AT, trachea midline Respiratory: Normal I:E Gastrointestinal:??Nondistended Extremities:??Symmetric, no edema Skin: Right periorbital ecchymosis Neurologic:?? Mental status: Awake but drowsy.??Opens eyes to voice.??Oriented to location, date and self; speechclear, fluent appropriate, ;follows simple and complex commands CN: EOMI, PERRL, VFF, no nystagmus, no facial weakness ;sensation intact ;hearing intact to voice tongue midline Motor: normal bulk and tone?? Upper Extremities- Deltoid:?5/5 right?5/5 left Biceps:?5/5 right?5/5 left Triceps:?5/5 right?5/5 left Hand social worker:?5/5 right?5/5 left Lower Extremities- Hip Flexion:?5/5 right?5/5 left?? Knee Extension:?5/5 right?5/5 left Plantar flexion:?5/5 right?5/5 left Dorsiflexion:?5/5 right?5/5 left EHL:?5/5 right?5/5left Sensation: intact to light touch throughout upper and lower extremities?? Assessment/Plan 58-year-old male, on 81 mg aspirin, with??left??SDH and scattered traumatic SAH??after fall from trailer roof.?? He is neurologically intact on exam, complaining of headache, intermittent dizziness and nausea??as well as back pain. ??Of note, patient also has??right posterior??11th and 12th rib frac tures??and right??TP fractures??T12-L4. ?? CT head was repeated 3 hours from initial??due to increased??drowsiness??and is overall stable??as far as??left SDH/mass effect/shift??but with more diffuse traumatic subarachnoid hemorrhage (bilateral??frontoparietal lobes, left temporal lobe) ?? Recommendations: No acute neurosurgical intervention Every 2 hour neuro checks Stat CT head for decline in neuro exam Head of bed greater than 30 degrees Systolic blood pressure less than 140 Hold??anticoagulation/antiplatelet medications??including chemical??DVT prophylaxis Keppra 500 mg twice daily??x 7 days No need for??bracing for TP fractures. ??Pain control as needed ?? Please page [phone] with questions or concerns Discussed with??Dr. Lawrence Problem List/Past Medical History Ongoing No qualifying data Procedure/Surgical History No qualifying data available. Home Medications No qualifying data available. Allergies No active allergies Family History No family history recorded. Patient Instructions DIAGNOSIS: Abdominal pain, fall ? TEST RESULTS: An ultrasound of your c area abdomen shows good movement and good heart rate.?? Your blood work shows no signs of infection, anemia, or metabolic derangement. ? Your specific PATIENT CARE INSTRUCTIONS (what to do / when to return): You were seen in the emergency room for abdominal pain after a fall.?? Your vital signs, blood workand ultrasound are reassuring.?? Given this you are deemed appropriate for discharge home.?? If at any point your symptoms worsen, please return to the ED for further evaluation. ? MEDICATIONS (what medications you should start (or stop) taking): No medications started or stopped today.?? Images CT head??1643: IMPRESSION: ?? 1. ??Small left frontal subarachnoid hemorrhage, as well as and left hemispheric subdural hematoma measuring up to 3 mm overlying the left frontal lobe. No evidence of midline shift. Relative hypodensity in the inferior left frontal lobe may represent an early cerebral contusion. 2. ??Moderate right occipital superficial scalp hematoma, with possible mild diastases of the subjacent right lambdoid suture. 3. ??Question of left inferior orbital wall fracture versus vascular channel. Correlate with any focal tenderness in this region. 4. ??No evidence of acute fracture or subluxation of the cervical spine. ?? CT head 193: IMPRESSION: ?? Moderate subgaleal hematoma over the right parietal skull with subarachnoid hemorrhage within bilateral frontoparietal lobes and left temporal lobe region. Additionally there is subdural hematoma over the right frontoparietal lobe with maximum diameter of 3 mm which extends over the anterior aspectof the falx. ?? 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 Verna Lowry RN - 12/26/2023 15:31 EDT Discharge Level of Care at Discharge : Inpatient Rehab Facility/Unit Discharge Nursing Homes/Rehab Facilities : [facility] Rehab Patient Left Unit Via : Ambulance Patient Accompanied Off Unit with : Ambulance/Chair Van Personnel Handover Given to Transport Personnel : Yes DC Instructions Provided & Signed by Pt : Yes Patient Understands D/C Instructions : Yes Verbalized Understanding of D/C Plan By : Patient Patient Instructions Discharge Signed : Yes Did Pt have Specialty Bed or Wound Vac : No Verna Lowry RN - 12/26/2023 13:45 EDT * Fern Gamboa NP: PERFORM Event Display: Discharge/Transfer Note Hospital Authored Date: [id number] Patient: ??KRIS FLANAGAN ? Age:??58 Years?Sex:??Male?:??1965?? Admit Date Admission Date: 12/19/2023 Discharge Date 12/26/23 Discharge Diagnoses 1.??Traumatic subarachnoid hemorrhage, 12/20/2023 2.??Subdural hematoma, 12/26/2023 3.??Rib fracture, 12/26/2023 4.??Fracture of thoracic transverse process, 12/26/2023 5.??Lumbar transverse process fracture, 12/26/2023 Hospital Course This is a 58yoM cat2 trauma s/p fall through fiberglass roof ~8ft. +LOC, denies EtOH, GCS 15 +ASA. Per EMS, patient was working on the fiberglass roof of a trailer when he fell through roof approximately 8 feet. He was found by his friends in scorpion position with feet up. He underwent a panscanwhich revealed R 11-12 rib fractures, T12-L4 transverse process fx on the R, L SDH/SAH.?Neurosurg recs??below. Patient was seen by??PT who recommended rehab. ?? On the day of discharge pain is well controlled on current regimen. ??Patient is afebrile with no leukocytosis. ??Patient is tolerating diet. ??Voiding and having bowel movements. ??Patient is appropriate for discharge to rehab . Follow-up with trauma with Chest Xray??prior in 1-2 weeks.? Injuries R 11-12 rib fractures T12-L4 transverse process fx on the R L SDH/SAH ?? Consultants Neurosurgery: - No acute neurosurgical intervention. No routine f/u needed. - Stat CT head for decline in neuro exam. - HOB >30 degrees. - SBP <140 - Keppra 500 mg twice daily??x 7 days (stop on??12/25 ) - No need for??bracing for TP fractures. - hold ASA x4 weeks, then re-start Objective/Physical Exam on Day of Discharge Vitals & Measurements T:??98.6?F?? HR:??66??(Peripheral)?? RR:??18?? BP:??144/66?? SpO2:??100%?? HT:??174??cm?? WT:??77.2??kg?? BMI:??25.14?? Future Appointments Sunday. 2023 1:40 PM EDT ?? With: Lennie HERNANDEZ, Josue Starks Where: Trauma Surg [address] [place] [address]- Status: Pending Inpatient Medications Medications (21) Active SCHEDULED: (16) Acetaminophen 325 mg Tablet (Acetaminophen Tablet) ??650 mg, By Mouth, Every 8 hours Docusate Sodium 100 mg Capsule (Colace sodium 100 mg oral capsule) ??100 mg 1 capsule, By Mouth, 2 times a day Folic Acid 1 mg Tablet (Folic Acid Tablet) ??1 mg, By Mouth, Daily Gabapentin 300 mg Capsule (gabapentin 300 mg oral capsule) ??300 mg, By Mouth, 3 times a day Heparin 5000 units/mL Inj (1 mL) (Heparin Inj) ??5,000 units 1 mL, Subcutaneous Injection, 3 times a day Keppra 500mg Tablet (Keppra 500 mg oral tablet) ??500 mg, By Mouth, Every 12 hours Lidocaine 5% Topical Patch (Lidocaine 5% Patch) ??1 each, Topically, Daily Magnesium Hydroxide 8% Susp UD (Milk of Magnesia Liquid) ??25 mL, By Mouth, 2 times a day Multivitamin Therapeutic / Minerals Tablet (Multivit Therapeutic/Minerals Tablet) ??1 tablet, By Mouth, Daily Nicotine 7 mg / 24 hour Patch (Nicotine Topical) ??7 mg, Topically, Daily Polyethylene Glycol 17 Gm Powder (MiraLax Powder) ??17 Gm 1 pack/packet, By Mouth, Daily Pyridoxine 50 mg Tablet (Pyridoxine Tablet) ??50 mg, By Mouth, Daily Remove Patch (Remove ??Patch) ??1 each, Topically, Daily Remove Patch (Remove Lidocaine Patch) ??1 each, Topically, Daily at bedtime Senna Tablet (Senna 8.6 mg oral tablet) ??8.6 mg 1 tablet, By Mouth, Daily Thiamine 100 mg Tablet (Thiamine Tablet) ??100 mg, By Mouth, 2 times a day CONTINUOUS: (0) PRN: (5) Acetaminophen/Butalbital/Caffeine Tablet (Fioricet Tablet) ??1 tablet, By Mouth, Every 8 hours Bisacodyl 10 mg Suppository (Bisacodyl Supp) ??10 mg 1 supp, Rectally, Daily Cyclobenzaprine 10 mg Tablet (Flexeril 10 mg oral tablet) ??10 mg, By Mouth, 3 times a day Ondansetron 2mg/mL Inj (2mL Vial) (Ondansetron Inj) ??4 mg, IV Push, Every 6 hours OxyCODONE 5 mg IR Tablet (oxyCODONE 5 mg oral tablet) ??5 mg, By Mouth, Every 4 hours Discharge Medications Acetaminophen (acetaminophen 325 mg oral tablet)?650?Milligram?By Mouth?Every 8 hours Acetaminophen/Butalbital/Caffeine (Fioricet Tablet)?1?tab(s)?By Mouth?Every 8 hours?as needed?Headache Bisacodyl (bisacodyl 10 mg rectal suppository)?1?suppository(ies)?10?Milligram?Rectal ly?Daily?as needed?Constipation Docusate (Colace sodium 100 mg oral capsule)?100?Milligram?1?capsule?By Mouth?2 times a day Folic Acid (folic acid 1 mg oral tablet)?1?Milligram?By Mouth?Daily Gabapentin (gabapentin 300 mg oral capsule)?300?Milligram?By Mouth?3 times a day levETIRAcetam (Keppra 500 mg oral tablet)?500?Milligram?By Mouth?Every 12 hours?for 1?Days?end 12/25 PM Lidocaine Topical (lidocaine 5% topical film)?Topically?Daily Milk of Magnesia (Milk of Magnesia Liquid)?25?Milliliter?By Mouth?2 times a day Multivitamin With Minerals (Multivit Therapeutic/Minerals Tablet)?1?tab(s)?By Mouth?Daily Nicotine?7?Milligram?Topically?Daily Oxycodone (oxyCODONE 5 mg oral tablet)?5?Milligram?By Mouth?Every 4 hours?as needed?for 3?Days?Pain , Moderate Polyethylene Glycol 3350 (MiraLax Powder)?1?pack/packet?17?gram?By Mouth?Daily Rosuvastatin (rosuvastatin 10 mg oral tablet)?1?tab(s)?10?Milligram?By Mouth?Daily?for 30?Days?stop and call MD field msucle ache or pain. ??Further refills from PCP. ??Thankyou. Rosuvastatin (rosuvastatin 10 mg oral tablet)?1?tab(s)?10?Milligram?By Mouth?Daily?for 90?Days Senna (Senna 8.6 mg oral tablet)?8.6?Milligram?1?tab(s)?By Mouth?Daily Labs Last 24 Hours No qualifying data available. Patient Education Titles WebMD Ignite Patient Education - Rib Fracture (Broken Rib)?? Follow-Up Appointments Added Follow Up ?Time Frame ?Comments [facility] Trauma Clinic?Arrive 1 hour prior to appointment toly radiology for chest xray Lilian Chavez MD Patient Instructions Hold Aspirin until 01/18/24 Last dose of Keppra tonight 12/26/23 ?? Trauma Special Instructions? If you develop fever, chills, increased pain, nausea, vomiting, bleeding please call the trauma surgery office at . Please take medications as prescribed and do not drive while on narcotic medications.? If you have any questions, please call the trauma surgery office at . ?? Please call your Primary Care Provider within 1 week for post hospital follow up and review of yourmedications. ?You were treated for concussion symptoms or have a mild traumatic brain injury that resulted in a minor bleed within your skull. ??The following symptoms are expected over the next few weeks: -Headache, dizziness, lightheadedness, confusion, light sensitivity, sleep difficulties, mood changes- however these are temporary and should resolve within the first few weeks?? -If symptoms are occurring can take time off of work, but should follow up with PCP for return to work?? -You will follow up with the trauma concussion clinic in 3 weeks after discharge and this appointment is already made for you, details are in your discharge paperwork -You will be contacted by the office staff a week prior to appointment to see if you are still experiencing symptoms, if you are not then the appointment is not needed. ??If symptoms have not resolved by this time the appointment will be confirmed. -Can try to increase activities as tolerated, try some light activity such as walking inside or outside, can use TVs or phones but stop if symptoms get worse -If headache gets suddenly worse and pain meds aren???t helping, dizziness with associated vomitingnot controlled by meds, sudden confusion/ forgetfulness that worsens with time, new balance issues please call concussion clinic at [phone] or visit nearest emergency room immediately? * Kaushik YOUNG, Jorge Mora: PERFORM Event Display: Discharge/Transfer Note Hospital Authored Date: Attending Attestation: ?? The patient was seen, examined, and discussed with the Trauma team on the date of service documented above. ??The clinical course, labs, and radiological studies were reviewed by me and findings on exam confirmed. ??I agree with the findings as well as the assessment and plan as delineated above. I have??performed the substantive portion of the medical decision making for the diagnosis of??SAH and the plan is stable for discharge. ? --- Jorge Faulkner MD, LINDSEY, FACS, [facility] Division of Trauma, Acute Care Surgery, and Surgical Critical Care * Merle Talley RN: VERIFY, PERFORM, SIGN Event Display: Case Management Discharge Plan Authored Date: [id number] Patient: KRIS FLANAGAN Age: 58 years Sex: Male : 1965 Associated Diagnoses: None Author: Merle Talley RN Discharge Plan Case Management Discharge Plan : Case Management Discharge Plan Data 12/26/2023 11:20 EDT Discharge Level of Care at Discharge Inpatient Rehab Facility/Unit Discharge Nursing Homes/Rehab Facilities [place] for Rehab Discharge Transportation Arranged [facility] [address] [facility] [id number] [phone] Discharge Arranged Transport Date/Time 12/26/2023 14:00 Mode of Transportation Arranged Ambulance Service Categories #1 Occupational Therapy, Physical Therapy, Residential Service Start Date and Time #1 12/26/2023 14:00 Name of Person Notified of Transfer the pt is aware of the planned discahrge for rehab today * Alen MILLER, Verna Aguilar: PERFORM Event Display: Patient Education/Instruction Authored Date: [id number] Inpatient Adult Discharge Instructions. [address] [address] Name: KRIS FLANAGAN : 1965?? Visit: 12/19/2023 20:02?? Current Date: 12/26/2023 13:46 ?? Account: [id number]?? Inpatient Adult Discharge Instructions We would like to thank you for allowing us to assist you with your healthcare needs. The following includes patient education materials and information regarding your injury/illness. Our entire staffstrives to provide an excellent experience for our patients and their families. PLEASE ENSURE YOU FOLLOW-UP PER THE INSTRUCTIONS BELOW! ?? YOUR OPINION IS IMPORTANT TO US! Please complete the survey you may receive by mail or email. Your feedback will be used to make improvements to the healthcare experiences of our patients and their families. Surveys are administered by [employer] ?? If further treatment with your primary care physician or another doctor is recommended, it is important for you to keep the appointment. Call your primary care physician or return to the Emergency Department immediately if your condition worsens, fails to improve, or new symptoms develop. If you need to find a doctor, you can call [facility] Link for a referral at [phone] or toll free at [phone][email or web address] ([phone]) or log in to [email or web address].. ?? [facility], in keeping with [facility] guidance, no longer requires face masks for staff, patientsor visitors in most situations. Similiar to time spent indoors at other locations, there is the chance that you were exposed to repiratory viruses during your time with us (such as flu or COVID-19). If you develop symptoms concerning for a viral respiratory infection, please seek testing (and treatment if indicated) from your medical provider or home test kit. ?? You can view and manage your care through the patient portal or by using a health care dominic of your choosing. [employer] is a website that allows you to securely view your medical information including your hospital discharge summary, office visit summaries, medications and follow-up visits. You can also request appointments, renew medications, and request access to your medical information using a health care dominic of your choosing, or just ask a question. You can enroll at [email or web address] or register during your next office visit. You have been discharged from [facility], Patient Care Unit: S3??. If you have any questions regarding these instructions, including results of studies pending, afteryou leave, please call us and we will be happy to assist you 02/04. [facility] Your Care Team Attending Physician Ahsan Anderson MD?? Consulting Providers Ahsan Anderson MD?? Discharging Providers Fern Gamboa NP Your Diagnosis Traumatic subarachnoid hemorrhage Subdural hematoma Rib fracture Fracture of thoracic transverse process Lumbar transverse process fracture Tests Performed Below is a partial list of the tests performed during your hospitalization. You may have had other tests and procedures not included in this list. Please discuss all test results with your provider. Alcohol Level Amphetamine Urine Screen Amylase Barbiturate Urine Screen Basic Metabolic Panel Benzodiazepine Urine Screen BUN CALCIUM Calcium Ionized Cannabinoid Urine Screen Cocaine Urine Screen COVID-19, RSV, and Flu A/B, Rapid PCR Creatinine ELECTROLYTES Glucose Level Hold Red Top Tube Lactic Acid Level Lytes Magnesium Level Opiate Screen Urine PH CORRECTED IONIZED CALCIUM Phosphorus Level PT (INR) PTT Type and Screen CT Abd/Pelvis W/ IV Contrast Only CT Angio Head CT Angio Neck CT Cervical Spine W/O Contrast CT Chest W/ Contrast CT Head/Brain W/O Contrast CT Lumbar Spine W/ IV Contrast CT Thoracic Spine W/ IV Contrast CXR W/ Frontal and Lat Shoulder Min 2 Views Left Shoulder Min 2 Views Right XR Chest Portable BUN?? CBC w/ Differential?? Creatinine?? Electrolytes (Lytes)?? Glucose Level?? Ionized Calcium (Calcium Ionized)?? Magnesium Level?? Phosphorus Level?? Primary Care Provider Lilian Chavez MD? Advance Directive Health Care Proxy on File Yes - Health Care Proxy Caregiver Relationship: Spouse Patient has a Designated Caregiver: Yes Discharge Vitals Temperature: 98.6 DegF Height: 174 cm Pulse Rate: 66 bpm Weight: 77.2 kg Respiratory Rate: 18 br/min Body Mass Index:??25.14 kg/m2??High Systolic Blood Pressure:??144 mm Hg??High Body surface area: 1.92 Diastolic Blood Pressure: 66 mm Hg ?? Oxygen Saturation: 100 % ?? Studies Pending All studies ordered during this hospital stay have been completed unless listed below. Please discuss all pending results with your provider listed above in these instructions. ?? BUN?? CBC w/ Differential?? Creatinine?? Electrolytes (Lytes)?? Glucose Level?? Ionized Calcium (Calcium Ionized)?? Magnesium Level?? Phosphorus Level?? What to do next Instructions From Your Doctor Hold Aspirin until 01/18/24 Last dose of Keppra tonight 12/26/23 ?? Trauma Special Instructions? If you develop fever, chills, increased pain, nausea, vomiting, bleeding please call the trauma surgery office at . Please take medications as prescribed and do not drive while on narcotic medications.? If you have any questions, please call the trauma surgery office at . ?? Please call your Primary Care Provider within 1 week for post hospital follow up and review of yourmedications. ?You were treated for concussion symptoms or have a mild traumatic brain injury that resulted in aminor bleed within your skull. ??The following symptoms are expected over the next few weeks: -Headache, dizziness, lightheadedness, confusion, light sensitivity, sleep difficulties, mood changes- however these are temporary and should resolve within the first few weeks?? -If symptoms are occurring can take time off of work, but should follow up with PCP for return to work?? -You will follow up with the trauma concussion clinic in 3 weeks after discharge and this appointment is already made for you, details are in your discharge paperwork -You will be contacted by the office staff a week prior to appointment to see if you are still experiencing symptoms, if you are not then the appointment is not needed. ??If symptoms have not resolved by this time the appointment will be confirmed. -Can try to increase activities as tolerated, try some light activity such as walking inside or outside, can use TVs or phones but stop if symptoms get worse -If headache gets suddenly worse and pain meds aren???t helping, dizziness with associated vomitingnot controlled by meds, sudden confusion/ forgetfulness that worsens with time, new balance issues please call concussion clinic at [phone] or visit nearest emergency room immediately? Orders? 12/26/23 13:26:00 EDT?? Scheduled Follow-Up Appointments Sunday. 2023 1:40 PM EDT ?? With: Josue Rich Where: [facility] [address] [place] [address] [address] [place] [address]- Status: Pending You Need to Schedule the Following Appointments Follow Up with??[facility] Why: Arrive 1 hour prior to appointment to [facility] radiology for chest xray Where: [address] [place] [id number]- Follow Up with??Lilian Chavez MD Where: [address] [place] [address]- Discharge Medications KRIS FLANAGAN :1965 Visit Date:12/19/2023 Medications: Please continue your medications until treatment is completed or stopped by your provider. Medications not listed below should be discontinued. Discuss any questions related to medications with your provider. What How Much When Instructions Next Dose New Acetaminophen (acetaminophen 325 mg oral tablet) 650 Milligram Oral Every 8 hours 12/25 tonight at 9pm New Acetaminophen/ Butalbital/ Caffeine (Fioricet Tablet) 1 tab(s) Oral Every 8 hours as needed for Headache as needed New Bisacodyl (bisacodyl 10 mg rectal suppository) 1 suppository(ies) Per rectum Daily as needed for Constipation as needed New Docusate (Colace sodium 100 mg oral capsule) 1 capsule Oral Twice a day 12/25 tonight New Folic Acid (folic acid 1 mg oral tablet) 1 Milligram Oral Daily 12/26 tomorrow morning New Gabapentin (gabapentin 300 mg oral capsule) 300 Milligram Oral 3 times a day 12/25 today at 3pm New levETIRAcetam (Keppra 500 mg oral tablet) 500 Milligram Oral Every 12 hours Duration: 1 Days end PM ?? 12/25 tonight New Lidocaine Topical (lidocaine 5% topical film) Topically Daily 12/26 tomorrow morning New Milk of Magnesia (Milk of Magnesia Liquid) 25 Milliliter Oral Twice a day 12/25 tonight New Multivitamin With Minerals (Multivit Therapeutic/ Minerals Tablet) 1 tab(s) Oral Daily 12/26 tomorrow morning New Nicotine 7 Milligram Topically Daily 12/26 tomorrow morning New Oxycodone (oxyCODONE 5 mg oral tablet) 5 Milligram Oral Every 4 hours as needed for Pain , Moderate Duration: 3 Days Printed Prescription as needed New Polyethylene Glycol 3350 (MiraLax Powder) 17 gram Oral Daily 12/26 tomorrow morning New Senna (Senna 8.6 mg oral tablet) 1 tab(s) Oral Daily 12/26 tomorrow morning Unchanged Rosuvastatin (rosuvastatin 10 mg oral tablet) 1 tab(s) Oral Daily Duration: 90 Days 12/26 tomorrow morning ?? What How Much When Comments Stop Taking Aspirin (aspirin 81 mg oral tablet, chewable) 1 tab(s) Oral Daily Duration: 30 Days Prescription Given During Visit Oxycodone (oxyCODONE 5 mg oral tablet) - 5 mg, By Mouth, Every 4 hours, # 5 tablet, 0 Refills?? Laboratory Results Below is a partial list of the most recent Laboratory test results done prior to this discharge. You may have had other tests and procedures not included in this list. Please discuss all test resultswith your provider. Est Creatinine Clearance - 130.42 mL/min (12/25/2023) Alcohol Level (12/19/2023) ???Ethanol, Serum or Plasma - NONE DETECTED Amphetamine Urine Screen (12/19/2023) ???Amphetamine Screen, Urine - NONE DETECTED Amylase (12/19/2023) ???Amylase - 54 units/L Barbiturate Urine Screen (12/19/2023) ???Barbiturate Screen, Urine - NONE DETECTED Basic Metabolic Panel (12/19/2023) ???Sodium - 142 mmol/L???Potassium - 4.4 mmol/L???Chloride - 107 mmol/L???Bicarbonate Level - 22 mmol/L???Anion Gap - 13???Glucose Level - 99 mg/dL???BUN - 16 mg/dL???Creatinine-Blood - 0.8 mg/dL???Estimated GFR Creatinine - 69 ML/MIN/1.73 M2???Calcium - 9.4 mg/dL Benzodiazepine Urine Screen (12/19/2023) ???Benzodiazepine Screen, Urine - NONE DETECTED BUN (12/25/2023) ???BUN - 13 mg/dL CALCIUM (12/20/2023) ???Calcium - 8.7 mg/dL Calcium Ionized (12/25/2023) ???Calcium, Ionized pH Corrected - 1.26 mmol/L Cannabinoid Urine Screen (12/19/2023) ???Cannabinoid Screen, Urine - NONE DETECTED Cocaine Urine Screen (12/19/2023) ???Cocaine Metabolite Screen, Urine - NONE DETECTED COVID-19, RSV, and Flu A/B, Rapid PCR (12/19/2023) ???Influenza A PCR - NEGATIVE???Influenza B PCR - NEGATIVE???RSV PCR - NEGATIVE???COVID-19 PCR Specimen Source - NASAL???COVID-19 PCR Result - NEGATIVE Creatinine (12/25/2023) ???Creatinine-Blood - 0.6 mg/dL???Estimated GFR Creatinine - 109 ML/MIN/1.73 M2 ELECTROLYTES (12/20/2023) ???Sodium - 140 mmol/L???Potassium - 4.4 mmol/L???Chloride - 107 mmol/L???Bicarbonate Level - 18 mmol/L???Anion Gap - 15 Glucose Level (12/25/2023) ???Glucose Level - 107 mg/dL Hold Red Top Tube (12/19/2023) ???Hold Red Top - SPECIMEN DISCARDED AFTER 1 WEEK Lactic Acid Level (12/19/2023) ???Lactate - 1.4 mmol/L Lytes (12/25/2023) ???Sodium - 137 mmol/L???Potassium - 4.3 mmol/L???Chloride - 103 mmol/L???Bicarbonate Level - 24 mmol/L???Anion Gap - 10 Magnesium Level (12/25/2023) ???Magnesium - 2.6 mg/dL Opiate Screen Urine (12/19/2023) ???Opiate Screen, Urine - NONE DETECTED PH CORRECTED IONIZED CALCIUM (12/20/2023) ???Calcium, Ionized pH Corrected - 1.22 mmol/L Phosphorus Level (12/25/2023) ???Phosphorus - 3.8 mg/dL PT (INR) (12/19/2023) ???INR - 1.0???Protime (PT) - 10.9 seconds PTT (12/19/2023) ???APTT - 22.7 seconds Type and Screen (12/19/2023) ???Blood Type - O Positive???Antibody Screen - Negative Allergies (NKA means No Known Allergies) albuterol penicillins Problems No qualifying data available Education Materials Below is the list of Educational Leaflet Providered with your Discharge Instructions. Web[employer] Ignite Patient Education - Rib Fracture (Broken Rib)?? Valuables and Belongings I fully understand and agree that [facility] accepts no responsibility for all my personal property including clothing, toilet articles, radios, jewelry, dentures, hearing aids, rings, money, or any other property that is in my possession or is brought to me after admission. I understand certain valuables may be placed in a hospital safe for a short period of time. I understand that the hospital is not liable for loss or damage due to accident, fire, or other natural occurrence while said property is in the safe. I accept full responsibility for any personal property that I keep with me, and will not hold the hospital responsible in case of loss or disappearance. I acknowledge that i have been encouraged to send valuables and belongings home. ?? Review of Valuable and Belonging List: With patient, With witness Date for Pt to Sign Valuables/Belongings: 12/26/23 12:47:00 ?? Other Discharge Information ? Case Management Discharge Plan?? Discharge Plan?? Discharge Agency Information?? Discharge Level of Care at Discharge: Inpatient Rehab Facility/Unit Service Start Date and Time #1: 12/26/23 14:00:00 [facility] [id number] [phone] Service Categories #1: Occupational Therapy, Physical Therapy, Residential Mode of Transportation Arranged: Ambulance Name of Person Notified of Transfer: the pt is aware of the planned discahrge for rehab today Discharge Arranged Transport Date/Time: 12/26/23 14:00:00 ?? Discharge Nursing Homes/Rehab Facilities: [facility] ? Pulmonary Rehab Status?? Pulmonary Rehab Discharge Status?? Respiratory Rate: 18 br/min ? Common Emergency Awareness Tips IS IT A STROKE? Act FAST and Check for these signs: FACE Does the face look uneven? ARM Does one arm drift down? SPEECH Does their speech sound strange? TIME Call at any sign of stroke ?? Heart Attack Signs Chest discomfort: Most heart attacks involve discomfort in the center of the chest and lasts more than a few minutes, or goes away and comes back. It can feel like uncomfortable pressure, squeezing, fullness or pain. Discomfort in upper body: Symptoms can include pain or discomfort in one or both arms, back, neck, jaw or stomach. Shortness of breath: With or without discomfort. Other signs: Breaking out in a cold sweat, nausea, or lightheaded. Remember, MINUTES DO MATTER. If you experience any of these heart attack warning signs, call to get immediate medical attention! ?? Smoking can increase your chances of developing chronic health problems and can cause harmful effects to other family members in your house. If you smoke, you are strongly encouraged to quit. Please call [employer] Link at [phone] or [phone] ([phone]) or log in to [email or web address] for referrals to smoking cessation programs. ?? 988 Suicide & Crisis Lifeline is available 02/04 if you or someone you know needs to find a reason to keep living. By calling 988 you'll be connected to a skilled, trained counselor at a crisis center in your area. INPATIENT DISCHARGE INSTRUCTIONS SIGNATURE PAGE KRIS FLANAGAN Location:[facility] Registration Date and Time:12/19/2023 20:02 EDT Primary Care Physician: Not on Staff, PCP Attending Physician: Monica YOUNG, Ahsan, I KRIS FLANAGAN, have received the above patient education materials/instructions and have verbalized understanding. If ambulance or transport services are being used I further acknowledge being given a choice of service. ?? If you need to contact me, please call me at this number: . Patient/Assembler Cards And Announcements Name: Patient/Assembler Cards And Announcements Signature: Relationship to Patient: Witness Name/Signature: Date: * Bee SPECIAL OFFICER, Jaines Norma: PERFORM Event Display: Patient Education Leaflets Authored Date: [id number] Rib Fracture (Broken Rib) ?? [id number] Rib Fracture (Broken Rib) Your ribs are curved bones in your chest. They help protect your lungs and expand and contract whenyou breathe. Children's ribs bend easily and can often withstand a blow or fall. But adult ribs aremore likely to break (fracture) under stress. Even coughing or a hard sneeze can fracture a rib. When to go to the emergency room (ER) Although they can be painful, most rib fractures aren't serious. But they often make it hard to cough or breathe deeply. Get to the ER or call 911 right away if you have: ??? Trouble breathing ??? Nausea, vomiting, or stomach pain with a sore or bruised rib ??? Pain that worsens over time ??? An injury to the chest or stomach ?? What to expect in the ER Here's what will happen in the ER:? A healthcare provider will ask about your injury and examine you carefully. ??? An X-ray of your chest will likely be taken to show any major damage to ribs and lungs. But ribs can have small breaks that don't show up on X-rays, even though they still hurt. In some cases, a CT scan may be done. ??? You may be given??medicine to ease your discomfort. ??? In rare cases, rib fractures can cause a lung to collapse or lead to bleeding in the chest. In these cases, a tube will be inserted into the chest to reinflate the lung or drain the blood. ?? Follow-up You are likely to heal in 6 to 8 weeks. Most rib fractures heal on their own with no lasting effects. Call your??healthcare provider??right away if you notice any of these symptoms: ??? Increased chest pain ??? Shortness of breath ??? Fever of 100.4??F (38??C) or above, or as directed by your provider ??? Chills ??? Coughing up blood ?? Last Reviewed Date: 2021 ?? [id number] [employer]. All rights reserved. This information is not intended as a substitute for professional medical care. Always follow your healthcare professional's instructions. ?? Patient Care team information Care Team Personnel Name: Alanis Smiley Position: S RN Member Role: Primary Care Nurse Name: Gypsy Mendoza RN Position: S RN Member Role: Primary Care Nurse Name: Ramy Beltran RN Position: S RN Member Role: Primary Care Nurse Name: Not on Staff, PCP Position: [facility] Physician (General Medicine) Member Role: PCP Name: Belle Cho RN Position: [facility] RN Member Role: Primary Care Nurse Name: Angelia Blevins RN Position: [facility] RN Member Role: Primary Care Nurse Name: Myra Vyas Position: [facility] RN Member Role: Primary Care Nurse Care Team Related Persons Name: JONNATHAN FLANAGAN Address: home [address] [place] [address] Name: JONNATHAN FLANAGAN Address: [address] [place] [address]
--- OUTSIDE RECORDS SUMMARY | 2024-06-03 19:23 | XMS_ITS | Continuity of Care Document ---
Author Organization [facility] Address [address] [place] [address]- Care Team Providers Care Animal Damage Control Agent Name Role Phone Lilian Chavez MD Primary Care Physician [phone] Encounter [facility] [place] Date(s): 02/13/23 - 03/15/23 [facility] [address] [place], [place] [id number]- [place] Allergies, Adverse Reactions, Alerts Substance Reaction Severity [...] 05/19/22 14:00:00 EDT, Route to Pharmacy Electronically, [facility][id number], Partial fill upon patient request if the prescription is for a schedule II... Start Date: 05/19/22 Stop Date: 05/14/23 Status: Ordered rosuvastatin 10 mg oral tablet 1 tablet = 10 mg, By Mouth, Daily, # 90 tablet, 0 Refills, Maintenance, 02/13/23 9:06:00 EDT, Tablet, [facility] #[id number], future reefills with PCP Dr Lilian Chavez, [...] 0 Refills, Maintenance, 01/11/23 15:01:00 EDT, Tablet, [facility] #[id number], stop all other statins, 170, cm, 05/11... Start Date: 01/11/23 Stop Date: 02/10/23 Status: Ordered Patient Care team information Care Team Personnel Name: Lilian Chavez MD Position: S Physician - Primary Care Member Role: PCP Address: Address: [address] [place] [address] [place] [address]- Care Team Related Persons Name: JONNATHAN FLANAGAN Address: home [address] [place] [address] [place] [id number]
--- OUTSIDE RECORDS SUMMARY | 2024-06-03 19:23 | XMS_ITS | Continuity of Care Document ---
Author Organization [facility] ter Address [address] [place] [address]- Care Team Providers Care Building Pressure Washer Name Role Phone Lilian Chavez MD Primary Care Physician Encounter [facility] Date(s): 04/21/22 - 04/24/[address] [address] Encounter Diagnosis CVA (cerebrovascular accident)(Final) - 04/21/22 Discharge Disposition: A-D/C Home Attending Physician: Obey Del Cid MD Admitting Physician: Sam Middleton MD Referring Physician: Not on Staff, Referring MD Allergies, Adverse Reactions, Alerts Substance Reaction Severity Status albuterol Active Medications aspirin 81 mg oral tablet, chewable 81 mg, 1, tablet, By Mouth, Daily, # 30 tablet, Refills 0, Tot. Refills 0, Maintenance, 04/24/22 12:41:00 EDT, Route to Pharmacy Electronically, [facility], Partial fill upon patient request if the prescription is for a schedule II opioi... Start Date: 04/24/22 Status: Ordered atorvastatin 40 mg oral tablet 1 tablet = 40 mg, By Mouth, Daily, # 30 tablet, 0 Refills, Maintenance, 04/24/22 12:41:00 EDT, Tablet, [facility], Partial fill upon patient request if [...] 05/26/22 12:42:00 EDT, 04/24/22 12:42:00 EDT, Gum, [facility], Partial fill upon patient request if the presc... Start Date: 04/24/22 Stop Date: 05/26/22 Status: Ordered Plavix 75 mg oral tablet 75 mg, 1, tablet, By Mouth, Daily, # 90 tablet, Refills 0, Tot. Refills 0, Maintenance, 04/24/22 12:41:00 EDT, Route to Pharmacy Electronically, [facility], Partial fill upon patient request if the prescription is for a schedule II opioi... Start Date: 04/24/22 Stop Date: 07/23/22 Status: Ordered Results Radiology Reports * Exam Date Time Procedure Performing Provider Status 04/21/22 12:00 PM Chest Portable Delmis Coto; Auth ( Verified) Notes: (Chest Portable) Reason For Exam: Stroke;Other: RESULT: Chest Portable Chest Portable REASON: Stroke; Clinical Question(s): CHF Hx of Present Illness: PT arrives via work, pt was unable to find words and could not speak for 5 mins, upon arrival , symptoms resolved on its own, pt described as motion sickness . PT reported feeling off . PT does have chromic right side facial droop as baseline; COMPARISON: None. FINDINGS: LINES AND TUBES: Several EKG leads project over the chest. LUNGS AND PLEURA: Moderate hyperinflation of the lungs compatible with emphysema.. Otherwise, lungs are clear. No pleural effusion. No pneumothorax. HEART, MEDIASTINUM AND MANSI: Heart is normal in size. Normal upper mediastinal and hilar contour. BONES AND SOFT TISSUES: No acute abnormality. Mild degenerative changes at the acromial clavicular joints bilaterally and in the thoracic spine. IMPRESSION: No acute abnormality. Findings suggestive of emphysema. I have personally reviewed the images and I agree with this report. WSN: [id number] Ordering Physician: Nola Harrington Dictated By: Ramana Freed DO Dictated Date/Time: 04/21/22 8:54 pm Reviewed By: Lambert De Luna MD Signed By: Lambert De Luna MD Signed Date/Time: 04/21/22 8:59 pm Transcribed By: RAMÓN Transcribed Date/Time: 04/21/22 8:09 pm Vital Signs Most recent to oldest [Reference Range]: 1 2 3 Height 173 cm (04/24/22 3:49 PM) 173 cm (04/24/22 11:19 AM) 173 cm (04/24/22 8:55 AM) Weight 73.7 kg (04/21/22 5:35 PM) Oxygen Saturation [94-100 %] 100 % (04/24/22 3:49 PM) 99 % (04/24/22 11:19 AM) 99 % (04/24/22 8:55 AM) Pulse Rate [55-90 bpm] 52 bpm *L* (04/24/22 3:49 PM) 54 bpm *L* (04/24/22 11:19 AM) 65 bpm (04/24/22 8:55 AM) Body Mass Index [18.5-24.99] 24.62 (04/21/22 5:35 PM) Blood Pressure [90-138/55-84 mm Hg] 133/72mm Hg (04/24/22 3:49 PM) 116/64mm Hg (04/24/22 11:19 AM) 116/73mm Hg (04/24/22 8:55 AM) Respiratory Rate [16-30 br/min] 18 br/min (04/24/22 3:49 PM) 8 br/min *L* (04/24/22 11:19 AM) 18 br/min (04/24/22 8:55 AM) Temperature [96.8-100.4 DegF] 96.6 DegF *L* (04/24/22 3:49 PM) 96.9 DegF (04/24/22 11:19 AM) 97.1 DegF (04/24/22 8:55 AM) Liters per Minute 0 L/min (04/24/22 3:49 PM) 0 L/min (04/24/22 11:19 AM) 0 L/min (04/24/22 8:55 AM) Mode of Delivery (Oxygen) Room air (04/24/22 3:49 PM) Room air (04/24/22 11:19 AM) Room air (04/24/22 8:55 AM) Blood pressure sites Arm, left (04/24/22 3:49 PM) Arm, left (04/24/22 11:19 AM) Arm, right (8/15/22 8:55 AM) Temperature Route Temporal (04/24/22 3:49 PM) Temporal (04/24/22 11:19 AM) Temporal (04/24/22 8:55 AM) Dry Weight 74.5 kg (04/21/22 5:35 PM) Weight Obtained Via Bed scale (04/21/22 5:35 PM) Dry Weight Obtained Via Patient/family s tated (04/21/22 5:35 PM)
--- OUTSIDE RECORDS SUMMARY | 2024-06-03 19:23 | XMS_ITS | Continuity of Care Document ---
Author Organization [facility] Address [address] [place] [address] [address], [address] [place] [address]- Care Team Providers Care Lending Consultant Name Role Phone Scott YOUNG, Lilian Reynolds Primary Care Physician [place] [facility] Date(s): 01/01/24 - 01/31/[address] [place], [place] [address] Allergies, Adverse Reactions, Alerts Substance Reaction Severity [...] opioid drug. Start Date: 12/26/23 Status: Ordered rosuvastatin 10 mg oral tablet 1 tablet = 10 mg, By Mouth, Daily, # 90 tablet, 0 Refills, Maintenance, 02/13/23 9:06:00 EDT, Tablet, [facility] #[id number], future reefills with PCP Dr Lilian Chavez, [...] 0 Refills, Maintenance, 01/11/23 15:01:00 EDT, Tablet, [facility] #[id number], stop all other statins, 170, cm, 05/11... Start Date: 01/11/23 Stop Date: 02/10/23 Status: Ordered Senna 8.6 mg oral tablet 8.6 mg, 1, tablet, By Mouth, Daily, Refills 0, Maintenance, 12/26/23 13:10:00 EDT, Tablet, Partial fill upon patient request if the prescription is for a schedule II opioid drug. Start Date: 12/26/23 Status: Ordered Social History Social History Type Response Smoking Status 5-9 cigarettes (betw een 1/4 to 1/2 pack)/day in last 30 days entered on: 03/21/23 Sex Patient Care team information Care Team Personnel Name: Alanis Smiley Position: S RN Member Role: Primary Care Nurse Name: Gypsy Mendoza RN Position: S RN Member Role: Primary Care Nurse Name: Ramy Beltran RN Position: S RN Member Role: Primary Care Nurse Name: Belle Cho RN Position: [facility] RN Member Role: Primary Care Nurse Name: Lilian Chavez MD Position: [facility] Physician - Primary Care Member Role: PCP Address: Address: [address] [place] [id number] Name: Angelia Blevins RN Position: [facility] RN Member Role: Primary Care Nurse Name: Myra Vyas Position: [facility] RN Member Role: Primary Care Nurse Care Team Related Persons Name: JONNATHAN FLANAGAN Address: [address] [place] [address] Name: JONNATHAN FLANAGAN Address: [address] [place] [address]
--- OUTSIDE RECORDS SUMMARY | 2024-06-03 19:23 | XMS_ITS | Continuity of Care Document ---
Author Organization [facility] Address [address] [place] [address] [address] [place] [address]- Care Team Providers Care Typewriter Mechanic Name Role Phone Lilian Chavez MD Primary Care Physician Encounter [facility] [place] Date(s): 01/09/24 - 02/08/[address] [place] [address]- Attending Physician: Danielle Barney Admitting Physician: AdmDanielle [...] 0 Refills, Maintenance, 02/13/23 9:06:00 EDT, Tablet, [facility] #[id number], future reefills with PCP Dr Lilian Chavez, [...] 0 Refills, Maintenance, 01/11/23 15:01:00 EDT, Tablet, [facility] #[id number], stop all other statins, 170, cm, 05/11... [...] RN Member Role: Primary Care Nurse Name: Reji MILLER, Gypsy Position: [facility] RN Member Role: Primary Care Nurse Name: Ramy Beltran RN Position: [facility] RN Member Role: Primary Care Nurse Name: Belle Cho RN Position: [facility] RN Member Role: Primary Care Nurse Name: Lilian Chavez MD Position: [facility] Physician - Primary Care Member Role: PCP Address: Address: [address] [place] [id number] Name: Angelia Blevins RN Position: [facility] RN Member Role: Primary Care Nurse Name: Myra Vyas Position: [facility] RN Member Role: Primary Care Nurse Care Team Related Persons Name: JONNATHAN FLANAGAN Address: [address] [place] [address] Name: JONNATHAN FLANAGAN Address: [address] [place] [address]
--- OUTSIDE RECORDS SUMMARY | 2024-06-03 19:23 | XMS_ITS | Continuity of Care Document ---
Author Organization [facility] Address [address] [place] [address]- Care Team Providers Care Cylinder Press Operator Apprentice Name Role Phone Lilian Chavez MD Primary Care Physician Encounter [facility] Date(s): 07/12/23 - 08/11/23 [facility] [address] [place], [place] [address] Allergies, Adverse Reactions, Alerts Substance Reaction [...] 05/19/22 14:00:00 EDT, Route to Pharmacy Electronically, [facility] #[id number], Partial fill upon patient request if the prescription is for a schedule II... Start Date: 05/19/22 Stop Date: 05/14/23 Status: Ordered rosuvastatin 10 mg oral tablet 1 tablet = 10 mg, By Mouth, Daily, # 90 tablet, 0 Refills, Maintenance, 02/13/23 9:06:00 EDT, Tablet, [facility] #[id number], future reefills with PCP Dr Lilian Chavez, [...] 0 Refills, Maintenance, 01/11/23 15:01:00 EDT, Tablet, [facility] #[id number], stop all other statins, 170, cm, 05/11... Start Date: 01/11/23 Stop Date: 02/10/23 Status: Ordered Social History Social History Type Response Smoking Status 5-9 cigarettes (betw een 1/4 to 1/2 pack)/day in last 30 days entered on: 03/21/23 Sex Patient Care team information Care Team Personnel Name: Lilian Chavez MD Position: [facility] Physician - Primary Care Member Role: PCP Address: Address: [address] [place] [address]- Name: Angelia Blevins RN Position: [facility] RN Member Role: Primary Care Nurse Care Team Related Persons Name: JONNATHAN FLANAGAN Address: [address] [address]
--- OUTSIDE RECORDS SUMMARY | 2024-06-03 19:23 | XMS_ITS | Continuity of Care Document ---
Author Organization [facility] Address [address] [place] [address] ve [address] [place] [address]- Care Team Providers Care Drum Sprayer Name Role Phone Lilian Chavez MD Primary Care Physician Encounter [facility] [place] Date(s): 01/09/24 - 01/16/[address] [place], [place] [address] Attending Physician: Josue Rich Allergies, Adverse Reactions, Alerts Substance Reaction Severity [...] 0 Refills, Maintenance, 02/13/23 9:06:00 EDT, Tablet, [facility] #[id number], future reefills with PCP Dr Lilian Chavez, [...] 0 Refills, Maintenance, 01/11/23 15:01:00 EDT, Tablet, [facility] #[id number], stop all other statins, 170, cm, 05/11... Start Date: 01/11/23 Stop Date: 02/10/23 Status: Ordered Senna 8.6 mg oral tablet 8.6 mg, 1, tablet, By Mouth, Daily, Refills 0, Maintenance, 12/26/23 13:10:00 EDT, Tablet, Partial fill upon patient request if the prescription is for a schedule II opioid drug. Start Date: 12/26/23 Status: Ordered Vital Signs Most recent to oldest [Reference Range]: 1 Height 174 cm (01/09/24 1:16 PM) Oxygen Saturation [94-100 %] 100 % (01/09/24 1:16 PM) Pulse Rate [55-90 bpm] 70 bpm (01/09/24 1:16 PM) Blood Pressure [90-138/55-84 mm Hg] 128/ 58mm Hg (01/09/24 1:16 PM) Temperature [96.8-100.4 DegF] 96.6 DegF *L* (01/09/24 1:16 PM) Mode of Delivery (Oxygen) Room air (01/09/24 1:16 PM) Blood pressure sites Arm, left (01/09/24 1:16 PM) Temperature Route Temporal (01/09/24 1:16 PM) Social History Social History Type Response [...] Care Nurse Name: Belle Cho RN Position: S RN Member Role: Primary Care Nurse Name: Lilian Chavez MD Position: [facility] Physician - Primary Care Member Role: PCP Address: Address: [address] [place] [address] Name: Angelia Blevins RN Position: S RN Member Role: Primary Care Nurse Name: Myra Vyas Position: S RN Member Role: Primary Care Nurse Care Team Related Persons Name: JONNATHAN FLANAGAN Address: [address] [place] [address] Name: JONNATHAN FLANAGAN Address: [address] [place] [address]
--- OUTSIDE RECORDS SUMMARY | 2024-06-03 19:24 | XMS_ITS | Continuity of Care Document ---
Author Organization [facility] Address [address] [place] [address]- Care Team Providers Care Carport Erector Name Role Phone Lilian Chavez MD Primary Care Physician [phone] [place] [facility] [place]11[place]23 - 02/10/23 [facility] [address] [place] [address]- [place] Allergies, Adverse Reactions, Alerts Substance Reaction [...] 05/19/22 14:00:00 EDT, Route to Pharmacy Electronically, [facility] #[id number], Partial fill upon patient request if the prescription is for a schedule II... Start Date: 05/19/22 Stop Date: 05/14/23 Status: Ordered rosuvastatin 10 mg oral tablet 1 tablet = 10 mg, By Mouth, Daily, stop and call MD field msradhames ache or pain. Further refills from PCP. Thank you., # 30 tablet, 0 Refills, Maintenance, 01/11/23 15:01:00 EDT, Tablet, [facility]. [facility] #[id number], stop all other statins, 170, cm, 05/11... Start Date: 01/11/23 Stop Date: 02/10/23 Status: Ordered Patient Care team information Care Team Personnel Name: Lilian Chavez MD Position: S Physician - Primary Care Member Role: PCP Address: Address: [address] [place] [address]- Care Team Related Persons Name: JONNATHAN FLANAGAN Address: [address] [address]
[2024-06-03 20:04] VITALS: BP 140/80; PULSE 69; RESP 18; TEMP 36.8; O2SAT 96
== END 2024-06-03 20:04 | disposition home or self-care (01) ==
PROVIDERS: Emergency Provider Emergency Medicine Emergency Medical Services; PCP Internal Medicine
DX: S80.12XA Contusion of left lower leg, initial encounter (principal); R60.0 Localized edema; Y93.01 Activity, walking, marching and hiking; Y93.89 Activity, other specified; Y92.89 Other specified places as the place of occurrence of the external cause; Y99.8 Other external cause status; Z79.899 Other long term (current) drug therapy
CPT/HCPCS: 99282